=== PATIENT | female | born 1940 | race Caucasian/White ===

== ENCOUNTER 2017-01-26 08:04 | Emergency (ER) | payer MEDICARE, OTHER ==
[2017-01-26 08:49] VITALS: BP 142/74
--- NOTE | 2017-01-26 08:57 | UC ---
Flori, DoctorEra, scribed for Jose L Miller MD on 01/26/17 at 0841 . Abdominal Pain Female HPI - HPI Summary HPI Summary: 76 year old female arrived to [facility] c/o decreased BMs for approximately 1 month. She reports very small black BMs, as well as generalized abdominal pain, nausea, and vomiting for the past 2-3 days. She indicates that her nausea increases after a meal and that she vomits immediately after eating or drinking. Pt denies fever. She was prescribed laxatives in [place] on 12/26/2016 , but indicates that they have not alleviated her symptoms. Her reports that pt has experienced increased nausea since her colonoscopy a few years ago. Additionally, she has a PMHx of uterine cancer (17+ years ago) and a hysterectomy. - History of Current Complaint Chief Complaint: UCAbdominalPain Stated Complaint: ABDOMINAL PAIN Time Seen by Provider: 01/26/17 08:30 Hx Obtained From: Patient Hx Last Menstrual Period: Many years ago. Onset/Duration: Gradual Onset Severity Initially: Moderate Severity Currently: Moderate Location: Epigastric Aggravating Factor(s): Food - increased nauseas Associated Signs and Symptoms: Positive: Constipation, Nausea, Vomiting Allergies/Adverse Reactions: Allergies Allergy/AdvReac Type Severity Reaction Status Date / Time No Known Allergies Allergy Verified 01/26/17 08:12 PMH/Surg Hx/FS Hx/Imm Hx Endocrine History Of: Reports: Diabetes, Dyslipidemia Denies: Thyroid Disease, Hyperthyroidism, Hypothyroidism Cardiovascular History Of: Reports: Hypertension Denies: Cardiac Disorders, Pacemaker/ICD, Myocardial Infarction, Congestive Heart Failure, Atrial Fibrillation, Deep Vein Thrombosis, Bleeding Disorders Respiratory History Of: Denies: COPD, Asthma, Bronchitis, Pneumonia, Pulmonary Embolism GI/ History Of: Reports: Gastroesophageal Reflux Denies: Ulcer, Gastrointestinal Bleed, Gall Bladder Disease, Kidney Stones, Diverticulitis, Renal Disease, Urosepsis Neurological History Of: 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 Negative For: HIV, Hepatitis B, Hepatitis C - Surgical History Surgical History: Yes Surgery Procedure, Year, and Place: HYSTERECTOMY MANY YEARS AGO. NECK -" STRAIGHTENED" - Family History Known Family History: Negative: Cardiac Disease, Hypertension, Diabetes Family History: No FHx of CVA - Social History Lives: With Family Alcohol Use: Occasionally Substance Use Type: None Smoking Status (MU): Former Smoker Type: Cigarettes Amount Used/How Often: 1 pack per week Have You Smoked in the Last Year: No When Did the Patient Quit Smoking/Using Tobacco: 30 years ago - Immunization History Most Recent Influenza Vaccination: unsure if she got it this year Most Recent Tetanus Shot: unsure Review of Systems Constitutional: Other - negative: fever Gastrointestinal: Abdominal Pain, Vomiting, Other - nausea, constipation Psychological: Other - mild dementia All Other Systems Reviewed And Are Negative: Yes Physical Exam Triage Information Reviewed: Yes Completion Of Physical Exam Limited Due To: Other - signs of mild dementia Appearance: Well-Appearing, No Pain Distress Vital Signs: Initial Vital Signs Temp 97.4 F 01/26/17 08:20 Pulse 70 01/26/17 08:20 Resp 20 01/26/17 08:20 BP 142/74 01/26/17 08:20 Pulse Ox 100 01/26/17 08:20 Vital Signs Reviewed: Yes Eyes: Positive: Conjunctiva Clear ENT: Positive: Normal ENT inspection Neck: Positive: Supple, Nontender Respiratory: Positive: Lungs clear, Normal breath sounds, No respiratory distress Cardiovascular: Positive: RRR Abdomen Description: Positive: Nontender, Soft, Other: - vertical scar below umbilicus Bowel Sounds: Positive: Other: - high pitched bowel sounds Musculoskeletal: Positive: Strength Intact, ROM Intact Neurological: Positive: Alert, Muscle Tone Normal Psychological Exam: Normal Skin Exam: Normal Abd Pain Female Course/Dx - Course Course Of Treatment: DUE TO ABDOMINAL PAIN WITH CONSTIPATION AND VOMITING, PATIENT TRANSFERRED TO ED. DISCUSSED WITH DR AGUILERA. PATIENT STABLE IN CLINIC. DISCUSSED NEED FOR CT/LABS WITH PATIENT AND AND THE NEED FOR FURTHER EVALUATION AND CARE IN ED. THEY CHOSE TO GO TO ED BY POV. - Differential Dx/Diagnosis Provider Diagnoses: ABDOMINAL PAIN, VOMITING, BLACK STOOLS - Physician Notification/Consults Discussed Patient Care With: 08:46 - Discussed pt care with Dr. Aguilera at [facility]. She agrees to accept pt. Discharge - Discharge Plan Condition: Stable Disposition: AGAINST MEDICAL ADVICE Referrals: Shanti Davis MD [Primary Care Provider] - The documentation as recorded by the Doctor cartwright Tahera accurately reflects the service I personally performed and the decisions made by me, Jose L Miller MD.
== END 2017-01-26 08:50 | disposition left against medical advice (07) ==
LOC: UCEAST 08:04
DX: R10.9 Unspecified abdominal pain (principal); R11.10 Vomiting, unspecified; E11.9 Type 2 diabetes mellitus without complications; K92.1 Melena; E78.5 Hyperlipidemia, unspecified; I10 Essential (primary) hypertension; K21.9 Gastro-esophageal reflux disease without esophagitis; F03.90 Unspecified dementia, unspecified severity, without behavioral disturbance, psychotic disturbance, mood disturbance, and anxiety; F41.9 Anxiety disorder, unspecified; F32.9 Major depressive disorder, single episode, unspecified; Z87.891 Personal history of nicotine dependence; Z85.42 Personal history of malignant neoplasm of other parts of uterus; Z79.82 Long term (current) use of aspirin
CPT/HCPCS: 99212; G0463

== ENCOUNTER 2017-01-26 09:45 | Emergency (ER) | payer MEDICARE, OTHER ==
--- NOTE | 2017-01-26 10:41 | RAD ---
Indication: Abdominal pain. Single view of the chest including dual energy PA views demonstrates no mediastinal shift. Heart is of normal size and configuration. Atherosclerotic aorta is noted. Lung crespo are clear. When compared to previous exam of August 09, 2016 no significant change is noted. IMPRESSION: Atherosclerotic aorta. No active cardiopulmonary disease is noted.
[2017-01-26 11:16] LABS: Hematocrit 37 % (35-47); Hemoglobin 12.5 g/dl (12.0-16.0); Mean Corpuscular HGB Conc 34 g/dl (31-36); Mean Corpuscular Hemoglobin 31 pg (27-31); Mean Corpuscular Volume 92 fL (80-97); Mean Platelet Volume 8 um3 (7.4-10.4); Red Blood Count 4.03 10^6/ul (4.0-5.4); Red Cell Distribution Width 13 % (10.5-15); White Blood Count 6.8 10^3/ul (3.5-10.8)
[2017-01-26] MEDS ORDERED: Ondansetron INJ* 2 MG/ML VIAL IV ONE (11:28)
[2017-01-26 11:31] LABS: Albumin 4.4 g/dL (3.2-5.2); BUN/Creatinine Ratio 19.8 (8-20); Calcium 9.6 mg/dL (8.6-10.3); EGFR African American 64.5 (>60); EGFR Non-African American 50.1 (>60); Globulin 3.2 g/dL (2-4); Potassium 3.7 mmol/L (3.5-5.0); Total Bilirubin 0.7 mg/dL (0.2-1.0); Total Protein 7.6 g/dL (6.4-8.9)
[2017-01-26] MEDS ORDERED: Iodixanol* (CONTRAST) 320 MG/ML 100 ML SDV IV ONE (12:20)
--- NOTE | 2017-01-26 13:38 | RAD ---
Indication: Abdominal pain, uterine carcinoma. Contrast: Administered 85.0 ml of VISAPAQUE 320 mgi/ml. CT of the abdomen and pelvis was performed after oral and IV contrast administration. Coronal and sagittal reconstructed images were obtained. The lung bases demonstrate no pleural fluid, nodules or masses. Heart demonstrates no pericardial effusion. The liver is normal in size. It is diffusely decreased in density consistent with hepatic steatosis. The gallbladder demonstrates no calcified gallstones. No pericholecystic fluid or wall thickening is identified. The spleen is normal in size. No adrenal lesions are noted. The kidneys demonstrate symmetric nephrograms without focal lesions. Multiple parapelvic cysts are noted in both kidneys. No hydronephrosis is noted. The pancreas demonstrates no mass or pancreatic duct dilatation. The common duct is not dilated. No dilated loops of bowel are noted. Contrast is noted in the right colon without evidence of bowel obstruction. CT of the pelvis demonstrates no pelvic adenopathy. No abnormally dilated loops of bowel are noted. The patient is status post hysterectomy. No free fluid is identified. The appendix is normal in size. IMPRESSION: MULTIPLE PARAPELVIC CYSTS ARE NOTED IN THE RENAL PELVIS. NO EVIDENCE OF BOWEL OBSTRUCTION IS NOTED. DIVERTICULOSIS WITHOUT DEFINITE EVIDENCE OF DIVERTICULITIS.
[2017-01-26 15:09] VITALS: BP 152/98
--- NOTE | 2017-02-09 18:50 | ED ---
Curz Ruby Billy, scribed for Velma Tracy MD on 01/26/17 at 1239 . Abdominal Pain/Female - HPI Summary HPI Summary: Patient is a 76 year-old female coming to [facility] for evaluation of abdominal pain , constipation, and dark stools for the last several weeks. She states that she has been straining and only able to produce a small amount of stool, which appears black in appearance. She was prescribed Flory-lax about 2 weeks ago, which has not improved her constipation. She denies any similar episodes in the past. She takes Nexium and Naproxen. - History of Current Complaint Chief Complaint: EDNauseaVomitDiarrh Stated Complaint: VOMITING/SENT FROM [facility] Time Seen by Provider: 01/26/17 09:52 Hx Obtained From: Patient Hx Last Menstrual Period: Many years ago. Onset/Duration: Gradual Onset, Lasting Weeks, Still Present Timing: Constant Severity Initially: Moderate Severity Currently: Moderate Pain Intensity: 7 Pain Scale Used: 0-10 Numeric Location: Diffuse Radiates: No Character: Dull, Cramping Aggravating Factor(s): Nothing Alleviating Factor(s): Nothing Associated Signs and Symptoms: Positive: Constipation, Blood in Stool - black. Negative: Chest Pain, Vomiting Allergies/Adverse Reactions: Allergies Allergy/AdvReac Type Severity Reaction Status Date / Time No Known Allergies Allergy Verified 01/26/17 09:49 Home Medications: Home Medications Hydrochlorothiazide TAB* [Hydrodiuril TAB*] 25 mg PO .ONCE 01/26/17 [History Confirmed 01/26/17] Naproxen [Naproxen EC 500 MG TAB] 500 mg PO BID PRN 01/26/17 [History Confirmed 01/26/17] Rivastigmine [Rivastigmine Transdermal] 1 applic TOPICAL .Q24 01/26/17 [History Confirmed 01/26/17] PMH/Surg Hx/FS Hx/Imm Hx Endocrine/Hematology History: Reports: Hx Anticoagulant Therapy - Aspirin., Hx Diabetes Denies: Hx Thyroid Disease Cardiovascular History: Reports: Hx Hypercholesterolemia, Hx Hypertension Denies: Hx Congestive Heart Failure, Hx Deep Vein Thrombosis, Hx Myocardial Infarction, Hx Pacemaker/ICD Respiratory History: Denies: Hx Asthma, Hx Chronic Obstructive Pulmonary Disease (COPD), Hx Lung Cancer, Hx Pneumonia, Hx Pulmonary Embolism GI History: Reports: Hx Irritable Bowel Denies: Hx Gall Bladder Disease, Hx Gastrointestinal Bleed, Hx Ulcer, Hx Urosepsis History: Denies: Hx Kidney Stones, Hx Renal Disease Musculoskeletal History: Reports: Hx Back Problems - lower back pain Denies: Hx Scoliosis Sensory History: Reports: Hx Contacts or Glasses Denies: Hx Hearing Aid, Hx Hearing Problem Opthamlomology History: Reports: Hx Contacts or Glasses Neurological History: Reports: Hx Dementia - mild dementia, Hx Headaches - YEARS Denies: Hx Seizures Psychiatric History: Reports: Hx Anxiety, Hx Depression Denies: Hx Panic Disorder, Hx Schizophrenia, Hx Bipolar Disorder, Hx Substance Abuse - Cancer History Cancer Type, Location and Year: UTERINE CANCER 1967 - HYSTERECTOMY Hx Chemotherapy: No Hx Radiation Therapy: No - Surgical History Surgery Procedure, Year, and Place: HYSTERECTOMY MANY YEARS AGO. NECK -" STRAIGHTENED" Hx Anesthesia Reactions: No - Immunization History Date of Tetanus Vaccine: unknown, not sure Date of Influenza Vaccine: Unknown Infectious Disease History: No Infectious Disease History: Denies: Hx Clostridium Difficile, Hx Hepatitis, Hx Human Immunodeficiency Virus (HIV), History Other Infectious Disease, Traveled Outside the [place] in Last 30 Days - Family History Known Family History: Negative: Cardiac Disease, Hypertension, Diabetes Family History: No FHx of CVA - Social History Alcohol Use: Occasionally Substance Use Type: Reports: None Smoking Status (MU): Former Smoker Type: Cigarettes Amount Used/How Often: 1 pack per week Have You Smoked in the Last Year: No Review of Systems Constitutional: Negative Negative: Chest Pain Negative: Shortness Of Breath Positive: Abdominal Pain, Other - black stool. Negative: Vomiting Neurological: Negative Psychological: Normal All Other Systems Reviewed And Are Negative: Yes Physical Exam Triage Information Reviewed: Yes Vital Signs On Initial Exam: Initial Vitals Temp Pulse Resp BP Pulse Ox 97.5 F 60 16 162/70 100 01/26/17 09:49 01/26/17 09:49 01/26/17 09:49 01/26/17 09:49 01/26/17 09:49 Vital Signs Reviewed: Yes Appearance: Positive: No Pain Distress Skin: Positive: Warm, Dry Head/Face: Positive: Normal Head/Face Inspection Eyes: Positive: EOMI, Conjunctiva Clear ENT: Positive: Hearing grossly normal. Negative: Muffled/hoarse voice Respiratory/Lung Sounds: Positive: Clear to Auscultation, Breath Sounds Present Cardiovascular: Positive: RRR, Pulses are Symmetrical in both Upper and Lower Extremities. Negative: Murmur Abdomen Description: Positive: Nontender, Soft. Negative: Pulsatile Mass Bowel Sounds: Positive: Present Musculoskeletal: Positive: Strength/ROM Intact. Negative: Edema Left, Edema Right Neurological: Positive: Sensory/Motor Intact, Alert, Oriented to Person Place, Time. Negative: Facial Droop, Focal Deficit @, Slurred Speech - Cheri Coma Scale Coma Scale Total: 15 Diagnostics - Vital Signs Vital Signs Temp Pulse Resp BP Pulse Ox 01/26/17 09:50 97.3 F 55 16 162/70 100 01/26/17 09:49 97.5 F 60 16 162/70 100 - Laboratory Lab Results: Lab Results 01/26/17 01/26/17 01/26/17 Range/Units 11:04 11:04 11:04 WBC 6.8 (3.5-10.8) 10^3/ul RBC 4.03 (4.0-5.4) 10^6/ul Hgb 12.5 (12.0-16.0) g/dl Hct 37 (35-47) % MCV 92 (80-97) fL MCH 31 (27-31) pg MCHC 34 (31-36) g/dl RDW 13 (10.5-15) % Plt Count 195 (150-450) 10^3/ul MPV 8 (7.4-10.4) um3 Neut % (Auto) 63.5 (38-83) % Lymph % (Auto) 27.5 (25-47) % Barbour % (Auto) 6.6 (1-9) % Eos % (Auto) 1.5 (0-6) % Baso % (Auto) 0.9 (0-2) % Absolute Neuts (auto) 4.3 (1.5-7.7) 10^3/ul Absolute Lymphs (auto) 1.9 (1.0-4.8) 10^3/ul Absolute Monos (auto) 0.5 (0-0.8) 10^3/ul Absolute Eos (auto) 0.1 (0-0.6) 10^3/ul Absolute Basos (auto) 0.1 (0-0.2) 10^3/ul Absolute Nucleated RBC 0 10^3/ul Nucleated RBC % 0 INR (Anticoag Therapy) 0.93 (0.89-1.11) APTT 31.1 (26.0-36.3) seconds Sodium 140 (133-145) mmol/L Potassium 3.7 (3.5-5.0) mmol/L Chloride 107 (101-111) mmol/L Carbon Dioxide 25 (22-32) mmol/L Anion Gap 8 (2-11) mmol/L BUN 21 (6-24) mg/dL Creatinine 1.06 H (0.51-0.95) mg/dL Est GFR ( Amer) 64.5 (>60) Est GFR (Non-Af Amer) 50.1 (>60) BUN/Creatinine Ratio 19.8 (8-20) Glucose 118 H (70-100) mg/dL Calcium 9.6 (8.6-10.3) mg/dL Total Bilirubin 0.70 (0.2-1.0) mg/dL AST 14 (13-39) U/L ALT 9 (7-52) U/L Alkaline Phosphatase 88 (34-104) U/L Total Protein 7.6 (6.4-8.9) g/dL Albumin 4.4 (3.2-5.2) g/dL Globulin 3.2 (2-4) g/dL Albumin/Globulin Ratio 1.4 (1-3) Blood Type Antibody Screen 01/26/17 Range/Units 11:04 WBC (3.5-10.8) 10^3/ul RBC (4.0-5.4) 10^6/ul Hgb (12.0-16.0) g/dl Hct (35-47) % MCV (80-97) fL MCH (27-31) pg MCHC (31-36) g/dl RDW (10.5-15) % Plt Count (150-450) 10^3/ul MPV (7.4-10.4) um3 Neut % (Auto) (38-83) % Lymph % (Auto) (25-47) % Barbour % (Auto) (1-9) % Eos % (Auto) (0-6) % Baso % (Auto) (0-2) % Absolute Neuts (auto) (1.5-7.7) 10^3/ul Absolute Lymphs (auto) (1.0-4.8) 10^3/ul Absolute Monos (auto) (0-0.8) 10^3/ul Absolute Eos (auto) (0-0.6) 10^3/ul Absolute Basos (auto) (0-0.2) 10^3/ul Absolute Nucleated RBC 10^3/ul Nucleated RBC % INR (Anticoag Therapy) (0.89-1.11) APTT (26.0-36.3) seconds Sodium (133-145) mmol/L Potassium (3.5-5.0) mmol/L Chloride (101-111) mmol/L Carbon Dioxide (22-32) mmol/L Anion Gap (2-11) mmol/L BUN (6-24) mg/dL Creatinine (0.51-0.95) mg/dL Est GFR ( Amer) (>60) Est GFR (Non-Af Amer) (>60) BUN/Creatinine Ratio (8-20) Glucose (70-100) mg/dL Calcium (8.6-10.3) mg/dL Total Bilirubin (0.2-1.0) mg/dL AST (13-39) U/L ALT (7-52) U/L Alkaline Phosphatase (34-104) U/L Total Protein (6.4-8.9) g/dL Albumin (3.2-5.2) g/dL Globulin (2-4) g/dL Albumin/Globulin Ratio (1-3) Blood Type A Positive Antibody Screen Negative Result Diagrams: 01/26/17 11:04 01/26/17 11:04 Lab Statement: Any lab studies that have been ordered have been reviewed, and results considered in the medical decision making process. - Radiology CXR Radiology Interpretation Completed By: Radiologist - Atherosclerotic aorta. No active cardiopulmonary disease is noted. - CT abd/pel CT Interpretation Completed By: Radiologist - MULTIPLE PARAPELVIC CYSTS ARE NOTED IN THE RENAL PELVIS. NO EVIDENCE OF BOWEL OBSTRUCTION IS NOTED. DIVERTICULOSIS WITHOUT DEFINITE EVIDENCE OF DIVERTICULITIS. - EKG 1128 Cardiac Rate: Bradycardia - 52 bpm EKG Rhythm: Sinus Bradycardia ST Segment: Normal - no acute ST changes EKG Interpretation: nml AV, prolonged IV w/ RBBB, LAFB, nml QTc, LVH, left-axis -40 EKG Comparison: No Significant Change - Compared to 08/09/16 Re-Evaluation - Re-Evaluation First Eval Re-Evaluation Time: 14:37 Comment: Rectal exam shows external hemorrhoids, non-thrombosed, not bleeding. There is soft, dark brown stool. We will send for occult blood testing. Second Eval Re-Evaluation Time: 15:11 Comment: Imaging and lab results reviewed with the patient. Abdominal Pain Fem Course/Dx - Course Course Of Treatment: 76 year-old female coming to the ED for evaluation of abdominal pain, constipation, and dark stools. Physical exam revealed a nontender abdomen. CXR shows atherosclerotic aorta with no active cardiopulmonary disease. CT abd/pel shows multiple parapelvic cysts are noted in the renal pelvis, no evidence of bowel obstruction is noted, and diverticulosis without definite evidence of diverticulitis. Stool sample was negative for occult blood. She will be discharged home to follow up with her PCP in 3 days. - Diagnoses Provider Diagnoses: Constipation, Abdominal pain Discharge - Discharge Plan Condition: Stable Disposition: HOME Patient Education Materials: Constipation (ED), High Fiber Diet (ED), Acute Abdominal Pain (ED) Referrals: Shanti Davis MD [Primary Care Provider] - 3 Days The documentation as recorded by the Cruz cartwright Billy accurately reflects the service I personally performed and the decisions made by Demarcus wright Barbara J, MD.
== END 2017-01-26 15:16 | disposition home or self-care (01) ==
LOC: ED 09:45
DX: K59.00 Constipation, unspecified (principal); R10.9 Unspecified abdominal pain; Z87.891 Personal history of nicotine dependence
CPT/HCPCS: 36415; 71010; 74177; 80053; 82272; 85025; 85610; 85730; 86850; 86900; 86901; 93005; 96374; 99284; J2405; Q9967

== ENCOUNTER 2018-04-06 12:43 | Emergency (ER) | payer MEDICARE, OTHER ==
[2018-04-06 13:30] LABS: ABS Basophils 0.1 10^3/ul (0-0.2); ABS Eosinophils 0.1 10^3/ul (0-0.6); ABS Lymphocytes 1.8 10^3/ul (1.0-4.8); ABS Monocytes 0.5 10^3/ul (0-0.8); ABS Neutrophils 4.2 10^3/ul (1.5-7.7); ABS Nucleated RBC 0 10^3/ul; Eosinophil % 1.3 % (0-6); Hematocrit 33 % (35-47); Lymphocyte % 27.4 % (25-47); Mean Corpuscular HGB Conc 34 g/dl (31-36); Mean Corpuscular Hemoglobin 31 pg (27-31); Mean Corpuscular Volume 92 fL (80-97); Mean Platelet Volume 8.5 um3 (7.4-10.4); Nucleated Red Blood Cells % 0; Platelet Count 222 10^3/ul (150-450); Red Blood Count 3.57 10^6/ul (4.00-5.40); Red Cell Distribution Width 13 % (10.5-15); White Blood Count 6.6 10^3/ul (3.5-10.8)
[2018-04-06 13:36] LABS: INR 0.99 (0.77-1.02)
[2018-04-06 13:49] LABS: EGFR Non-African American 46.4 (>60)
[2018-04-06 14:13] LABS: Urine Appearance Clear; Urine Blood Negative (Negative); Urine Color Yellow; Urine Ketones Negative (Negative); Urine Protein Negative (Negative); Urine Urobilinogen Negative (Negative)
--- NOTE | 2018-04-06 16:58 | ED ---
Vadim Ruby Natalie, scribed for Oscar De La Cruz MD on 04/06/18 at 1325 . Psychiatric Complaint - HPI Summary HPI Summary: The patient is a 77 y/o F presenting to [facility] from home where she lives alone c/o not being able to remember things. The pt has hx of dementia. She states that she was brought here because she keeps forgetting things. Per EMS, the pt's son and daughter were at her house and reported that she attempted to get out of a moving vehicle, and a note was found. The pt does not remember this happening. She denies SI at this time, and she is not currently in any pain. It was reported that the pt had a cardiac event but further information is unknown. - History Of Current Complaint Time Seen by Provider: 04/06/18 12:48 Hx Obtained From: Patient Hx Last Menstrual Period: Many years ago. Onset/Duration: Lasting Days, Still Present Timing: Constant Severity Initially: Moderate Severity Currently: Moderate Character: Depressed Aggravating Factor(s): Other - talking about Alleviating Factor(s): Nothing Has Suicidal: Reports: Has Prior Attempt(s) - trying to get out of moving vehicle - Allergies/Home Medications Allergies/Adverse Reactions: Allergies Allergy/AdvReac Type Severity Reaction Status Date / Time No Known Allergies Allergy Verified 01/26/17 09:49 PMH/Surg Hx/FS Hx/Imm Hx Endocrine/Hematology History: Reports: Hx Anticoagulant Therapy - Aspirin., Hx Diabetes Denies: Hx Thyroid Disease Cardiovascular History: Reports: Hx Hypercholesterolemia, Hx Hypertension Denies: Hx Congestive Heart Failure, Hx Deep Vein Thrombosis, Hx Myocardial Infarction, Hx Pacemaker/ICD Respiratory History: Denies: Hx Asthma, Hx Chronic Obstructive Pulmonary Disease (COPD), Hx Lung Cancer, Hx Pneumonia, Hx Pulmonary Embolism GI History: Reports: Hx Irritable Bowel Denies: Hx Gall Bladder Disease, Hx Gastrointestinal Bleed, Hx Ulcer, Hx Urosepsis History: Denies: Hx Kidney Stones, Hx Renal Disease Musculoskeletal History: Reports: Hx Back Problems - lower back pain Denies: Hx Scoliosis Sensory History: Reports: Hx Contacts or Glasses Denies: Hx Hearing Aid, Hx Hearing Problem Opthamlomology History: Reports: Hx Contacts or Glasses Neurological History: Reports: Hx Dementia - mild dementia, Hx Headaches - YEARS Denies: Hx Seizures Psychiatric History: Reports: Hx Anxiety, Hx Depression Denies: Hx Panic Disorder, Hx Schizophrenia, Hx Bipolar Disorder, Hx Substance Abuse - Cancer History Cancer Type, Location and Year: 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 NECK -" STRAIGHTENED" Hx Anesthesia Reactions: No - Immunization History Date of Tetanus Vaccine: unknown, not sure Date of Influenza Vaccine: Unknown Infectious Disease History: Denies: Hx Clostridium Difficile, Hx Hepatitis, Hx Human Immunodeficiency Virus (HIV), History Other Infectious Disease - Family History Known Family History: Negative: Cardiac Disease, Hypertension, Diabetes Family History: No FHx of CVA - Social History Alcohol Use: Occasionally Substance Use Type: Reports: None Smoking Status (MU): Former Smoker Type: Cigarettes Amount Used/How Often: 1 pack per week Have You Smoked in the Last Year: No Review of Systems Positive: Other - pain in hip Neurological: Other - forgetting things Positive: Other - NEGATIVE: SI All Other Systems Reviewed And Are Negative: Yes Physical Exam - Summary Physical Exam Summary: Appearance: Well appearing, no pain distress, tears up when talking about Skin: warm, dry, reflects adequate perfusion Head/face: normal Eyes: EOMI, NANNETTE ENT: normal Neck: supple, non-tender Respiratory: CTA, breath sounds present Cardiovascular: regularly irregular heart, pulses irregular Abdomen: non-tender, soft Bowel Sounds: present Musculoskeletal: normal, strength/ROM intact Neuro: normal, sensory motor intact, trace of slurred speech Triage Information Reviewed: Yes Vital Signs On Initial Exam: Initial Vitals Pulse Pulse Ox 76 96 04/06/18 12:53 04/06/18 12:53 Vital Signs Reviewed: Yes Diagnostics - Vital Signs Vital Signs Temp Pulse Resp BP Pulse Ox 04/06/18 14:05 57 20 145/65 97 04/06/18 14:00 40 20 98 04/06/18 13:38 71 162/74 94 04/06/18 13:08 97.3 F 60 16 130/80 98 04/06/18 13:00 81 100 04/06/18 12:53 76 96 - Laboratory Lab Results: Lab Results 04/06/18 04/06/18 04/06/18 Range/Units 13:18 13:18 13:18 WBC 6.6 (3.5-10.8) 10^3/ul RBC 3.57 L (4.00-5.40) 10^6/ul Hgb 11.0 L (12.0-16.0) g/dl Hct 33 L (35-47) % MCV 92 (80-97) fL MCH 31 (27-31) pg MCHC 34 (31-36) g/dl RDW 13 (10.5-15) % Plt Count 222 (150-450) 10^3/ul MPV 8.5 (7.4-10.4) um3 Neut % (Auto) 63.0 (38-83) % Lymph % (Auto) 27.4 (25-47) % [place] % (Auto) 7.4 H (0-7) % Eos % (Auto) 1.3 (0-6) % Baso % (Auto) 0.9 (0-2) % Absolute Neuts (auto) 4.2 (1.5-7.7) 10^3/ul Absolute Lymphs (auto) 1.8 (1.0-4.8) 10^3/ul Absolute Monos (auto) 0.5 (0-0.8) 10^3/ul Absolute Eos (auto) 0.1 (0-0.6) 10^3/ul Absolute Basos (auto) 0.1 (0-0.2) 10^3/ul Absolute Nucleated RBC 0 10^3/ul Nucleated RBC % 0 INR (Anticoag Therapy) 0.99 (0.77-1.02) Sodium 143 (135-145) mmol/L Potassium 3.3 L (3.5-5.0) mmol/L Chloride 112 H (101-111) mmol/L Carbon Dioxide 21 L (22-32) mmol/L Anion Gap 10 (2-11) mmol/L BUN 25 H (6-24) mg/dL Creatinine 1.13 H (0.51-0.95) mg/dL Est GFR ( Amer) 56.2 (>60) Est GFR (Non-Af Amer) 46.4 (>60) BUN/Creatinine Ratio 22.1 H (8-20) Glucose 98 (70-100) mg/dL Calcium 9.5 (8.6-10.3) mg/dL Total Bilirubin 0.50 (0.2-1.0) mg/dL AST 12 L (13-39) U/L ALT 6 L (7-52) U/L Alkaline Phosphatase 76 (34-104) U/L Total Protein 7.0 (6.4-8.9) g/dL Albumin 4.1 (3.2-5.2) g/dL Globulin 2.9 (2-4) g/dL Albumin/Globulin Ratio 1.4 (1-3) TSH 0.59 (0.34-5.60) mcIU/mL Urine Color Urine Appearance Urine pH (5-9) Ur Specific [place] (1.010-1.030) Urine Protein (Negative) Urine Ketones (Negative) Urine Blood (Negative) Urine Nitrate (Negative) Urine Bilirubin (Negative) Urine Urobilinogen (Negative) Ur Leukocyte Esterase (Negative) Urine WBC (Auto) (Absent) Urine RBC (Auto) (Absent) Ur Squamous Epith Cells (Absent) Urine Bacteria (Absent) Urine Glucose (Negative) Salicylates < 2.50 (<30) mg/dL Urine Opiates Screen (None Detect) Acetaminophen < 15 mcg/mL Ur Barbiturates Screen (None Detect) Ur Phencyclidine Scrn (None Detect) Ur Amphetamines Screen (None Detect) U Benzodiazepines Scrn (None Detect) Urine Cocaine Screen (None Detect) U Cannabinoids Screen (None Detect) Serum Alcohol < 10 (<10) mg/dL 04/06/18 04/06/18 Range/Units 13:59 14:00 WBC (3.5-10.8) 10^3/ul RBC (4.00-5.40) 10^6/ul Hgb (12.0-16.0) g/dl Hct (35-47) % MCV (80-97) fL MCH (27-31) pg MCHC (31-36) g/dl RDW (10.5-15) % Plt Count (150-450) 10^3/ul MPV (7.4-10.4) um3 Neut % (Auto) (38-83) % Lymph % (Auto) (25-47) % [place] % (Auto) (0-7) % Eos % (Auto) (0-6) % Baso % (Auto) (0-2) % Absolute Neuts (auto) (1.5-7.7) 10^3/ul Absolute Lymphs (auto) (1.0-4.8) 10^3/ul Absolute Monos (auto) (0-0.8) 10^3/ul Absolute Eos (auto) (0-0.6) 10^3/ul Absolute Basos (auto) (0-0.2) 10^3/ul Absolute Nucleated RBC 10^3/ul Nucleated RBC % INR (Anticoag Therapy) (0.77-1.02) Sodium (135-145) mmol/L Potassium (3.5-5.0) mmol/L Chloride (101-111) mmol/L Carbon Dioxide (22-32) mmol/L Anion Gap (2-11) mmol/L BUN (6-24) mg/dL Creatinine (0.51-0.95) mg/dL Est GFR ( Amer) (>60) Est GFR (Non-Af Amer) (>60) BUN/Creatinine Ratio (8-20) Glucose (70-100) mg/dL Calcium (8.6-10.3) mg/dL Total Bilirubin (0.2-1.0) mg/dL AST (13-39) U/L ALT (7-52) U/L Alkaline Phosphatase (34-104) U/L Total Protein (6.4-8.9) g/dL Albumin (3.2-5.2) g/dL Globulin (2-4) g/dL Albumin/Globulin Ratio (1-3) TSH (0.34-5.60) mcIU/mL Urine Color Yellow Urine Appearance Clear Urine pH 7.0 (5-9) Ur Specific [place] 1.010 (1.010-1.030) Urine Protein Negative (Negative) Urine Ketones Negative (Negative) Urine Blood Negative (Negative) Urine Nitrate Negative (Negative) Urine Bilirubin Negative (Negative) Urine Urobilinogen Negative (Negative) Ur Leukocyte Esterase 2+ A (Negative) Urine WBC (Auto) 1+(6-10/hpf) A (Absent) Urine RBC (Auto) Absent (Absent) Ur Squamous Epith Cells Present A (Absent) Urine Bacteria Absent (Absent) Urine Glucose Negative (Negative) Salicylates (<30) mg/dL Urine Opiates Screen None detected (None Detect) Acetaminophen mcg/mL Ur Barbiturates Screen None detected (None Detect) Ur Phencyclidine Scrn None detected (None Detect) Ur Amphetamines Screen None detected (None Detect) U Benzodiazepines Scrn None detected (None Detect) Urine Cocaine Screen None detected (None Detect) U Cannabinoids Screen None detected (None Detect) Serum Alcohol (<10) mg/dL Result Diagrams: 04/06/18 13:18 04/06/18 13:18 Lab Statement: Any lab studies that have been ordered have been reviewed, and results considered in the medical decision making process. - EKG 13:20 Cardiac Rate: NL - 75 BPM EKG Rhythm: Sinus Rhythm EKG Interpretation: RBBB. PACs in bigeminy pattern. Non-specific ST. Re-Evaluation - Re-Evaluation First Eval Re-Evaluation Time: 16:20 Change: Unchanged - I spoke with the pt's family. The pt will not be admitted to [facility]. Course/Dx - Course Course Of Treatment: Patient was sent in by family from home where she lives alone despite dementia. She is recently made alone as her was discharged from the hospital to the care of his son in [place]. There was some concern for her safety there and so she was sent to the ER for "mental health evaluation." Patient does have dementia and has some episodes of tearfulness but she denies any suicidal or homicidal ideation. Full medical evaluation was entertained and she was cleared for psychiatric evaluation. Crisis evaluators in consultation with psychiatry of cleared her from a mental health standpoint. Adult Protective Services and social work were contacted and were made aware of the patient. Adult Protective Services does have an open case with her recently found her to be safe at home. At this time she was to be made a social admit to the medicine service and the hospitalist was contacted. However , the patient's daughter presented and was able to add to the history. They have been looking for suitable housing for her so she does not have to be alone but have been unable to locate some thus far. They would like to take her home with patient's son-in-law staying with her for the time being. Patient is happy with this disposition was discharged in good condition. They are encouraged to follow-up with the primary care physician and social work in the morning to assist with placement. - Differential Dx/Clinical Impression Provider Diagnosis: Advanced dementia - Physician Notifications Discussed Care Of Patient With: Dr. Andrea Garza, APS - from [facility] Social Work Time Discussed With Above Provider: 15:38 - Kayla agrees that the pt should be admitted. Dr. Mendez is aware of the pt's symptoms with possible admission. APS was notified of pt's situation. Pt will not be admitted afterall. Discharge - Sign-Out/Discharge Documenting (check all that apply): Discharge/Admit/Transfer - Pt will be discharged home. - Discharge Plan Condition: Good Disposition: HOME Patient Education Materials: Dementia (ED) Referrals: Shanti Davis MD [Primary Care Provider] - Additional Instructions: Follow-up with Adult Protective Services, patient's physician and social work in the morning to assist with housing. Return if worse, new symptoms or other concerns. - Billing Disposition and Condition Condition: GOOD Disposition: Home The documentation as recorded by the Vadim cartwright Natalie accurately reflects the service I personally performed and the decisions made by Dorothy wright Kirk, MD.
[2018-04-06 17:01] VITALS: BP 173/64
== END 2018-04-06 16:47 | disposition home or self-care (01) ==
LOC: ED 12:43
DX: F03.90 Unspecified dementia, unspecified severity, without behavioral disturbance, psychotic disturbance, mood disturbance, and anxiety (principal); Z87.891 Personal history of nicotine dependence; Z79.01 Long term (current) use of anticoagulants; I10 Essential (primary) hypertension
CPT/HCPCS: 36415; 80053; 80307; 80320; 80329; 81003; 81015; 84443; 85025; 85610; 87086; 93005; 99285; G0480

== ENCOUNTER 2018-04-10 11:57 | Inpatient (IN) | payer MEDICARE, OTHER ==
[2018-04-10 12:52] LABS: ABS Basophils 0.1 10^3/ul (0-0.2); ABS Eosinophils 0.1 10^3/ul (0-0.6); ABS Lymphocytes 1.3 10^3/ul (1.0-4.8); ABS Monocytes 0.6 10^3/ul (0-0.8); ABS Neutrophils 5.8 10^3/ul (1.5-7.7); ABS Nucleated RBC 0 10^3/ul; Hematocrit 30 % (35-47); Hemoglobin 10.4 g/dl (12.0-16.0); Lymphocyte % 16.8 % (25-47); Mean Corpuscular HGB Conc 35 g/dl (31-36); Mean Corpuscular Hemoglobin 32 pg (27-31); Mean Corpuscular Volume 91 fL (80-97); Mean Platelet Volume 8.7 um3 (7.4-10.4); Nucleated Red Blood Cells % 0; Platelet Count 192 10^3/ul (150-450); Red Blood Count 3.27 10^6/ul (4.00-5.40); Red Cell Distribution Width 13 % (10.5-15); White Blood Count 7.8 10^3/ul (3.5-10.8)
[2018-04-10 13:01] LABS: INR 1.02 (0.77-1.02)
[2018-04-10 13:15] LABS: EGFR Non-African American 48.9 (>60)
--- NOTE | 2018-04-10 13:48 | RAD ---
INDICATION: Altered mental status COMPARISON: CT brain August 09, 2016 TECHNIQUE: Noncontrast axial source images were acquired from the skull base to the vertex. FINDINGS: Ventricles/sulci: There is cortical atrophy with compensatory dilatation of the CSF spaces. Brain parenchyma: There is no focal parenchymal finding, evidence of intracranial mass, or intracranial mass effect. There are stable and chronic microvascular ischemic changes. Intracranial hemorrhage:None. Extra-axial spaces: There are no abnormal extra axial fluid collections or evidence of extra-axial mass. Calvarium: There is no calvarial fracture or other calvarial abnormality. Scalp: There is no evidence of scalp or extracalvarial soft tissue abnormality. Paranasal sinuses/mastoid: The paranasal sinuses and mastoid air cells are clear. Other: None. IMPRESSION: No acute intracranial findings. Atrophy with chronic microvascular ischemia
[2018-04-10] MEDS ORDERED: QUEtiapine TAB* 25 MG PO ONE (15:03)
[2018-04-10] MEDS ORDERED: Acetaminophen TAB* 325 MG PO PRN (15:28)
[2018-04-10] MEDS ORDERED: Albuterol 2.5 MG/3 ML NEB.SOL* (0.083%) INH PRN (15:37)
--- NOTE | 2018-04-10 15:42 | ED ---
Brisa Ruby Edward, scribed for Jose L Miller MD on 04/10/18 at 1210 . Neurological HPI - HPI Summary HPI Summary: 77 y/o female presents to the ED for worsening dementia, called by family. Pt seen several days ago in the ED for similar symptoms. Pt unsure why she came to the ED. Pt also c/o ABD pain in the lower ABD. Level 5 caveat due to dementia - History of Current Complaint Chief Complaint: EDAltMentalStatus Stated Complaint: DEMENTIA Time Seen by Provider: 04/10/18 12:03 Hx Obtained From: Patient Hx From Patient Unobtainable Due To: Dementia Hx Last Menstrual Period: Many years ago. Pain Intensity: 0 Character: Other: - worsening dementia Aggravating: Nothing Alleviating: Nothing Associated Signs and Symptoms: Positive: Nothing - ABD pain - Additional Pertinent History Primary Care Physician: [id number] - Allergy/Home Medications Allergies/Adverse Reactions: Allergies Allergy/AdvReac Type Severity Reaction Status Date / Time No Known Allergies Allergy Verified 01/26/17 09:49 Home Medications: Home Medications Lisinopril TAB* [Prinivil TAB*] 20 mg PO DAILY 04/10/18 [History Confirmed 04/10] Pravastatin Sodium [Pravachol] 80 mg PO DAILY 04/10/18 [History Confirmed ] Sertraline* [Zoloft*] 100 mg PO DAILY 04/10/18 [History Confirmed 04/10/18] PMH/Surg Hx/FS Hx/Imm Hx Previously Healthy: No Endocrine/Hematology History: Reports: Hx Anticoagulant Therapy - Aspirin., Hx Diabetes Denies: Hx Thyroid Disease Cardiovascular History: Reports: Hx Hypercholesterolemia, Hx Hypertension Denies: Hx Congestive Heart Failure, Hx Deep Vein Thrombosis, Hx Myocardial Infarction, Hx Pacemaker/ICD Respiratory History: Denies: Hx Asthma, Hx Chronic Obstructive Pulmonary Disease (COPD), Hx Lung Cancer, Hx Pneumonia, Hx Pulmonary Embolism GI History: Reports: Hx Irritable Bowel Denies: Hx Gall Bladder Disease, Hx Gastrointestinal Bleed, Hx Ulcer, Hx Urosepsis History: Denies: Hx Kidney Stones, Hx Renal Disease Musculoskeletal History: Reports: Hx Back Problems - lower back pain Denies: Hx Scoliosis Sensory History: Reports: Hx Contacts or Glasses Denies: Hx Hearing Aid, Hx Hearing Problem Opthamlomology History: Reports: Hx Contacts or Glasses Neurological History: Reports: Hx Dementia - mild dementia, Hx Headaches - YEARS Denies: Hx Seizures Psychiatric History: Reports: Hx Anxiety, Hx Depression Denies: Hx Eating Disorder, Hx Panic Disorder, Hx Schizophrenia, Hx Bipolar Disorder, Hx of Violent Episodes Against Others, Hx Substance Abuse - Cancer History Cancer Type, Location and Year: UTERINE CANCER 1967 - HYSTERECTOMY Hx Chemotherapy: No Hx Radiation Therapy: No - Surgical History Surgery Procedure, Year, and Place: HYSTERECTOMY MANY YEARS AGO. NECK -" STRAIGHTENED" Hx Anesthesia Reactions: No - Immunization History Date of Tetanus Vaccine: unknown, not sure Date of Influenza Vaccine: Unknown Infectious Disease History: No Infectious Disease History: Denies: Hx Clostridium Difficile, Hx Hepatitis, Hx Human Immunodeficiency Virus (HIV), History Other Infectious Disease, Traveled Outside the [place] in Last 30 Days - Family History Known Family History: Positive: None Negative: Cardiac Disease, Hypertension, Diabetes Family History: No FHx of CVA - Social History Alcohol Use: Occasionally Substance Use Type: Reports: None Smoking Status (MU): Former Smoker Type: Cigarettes Amount Used/How Often: 1 pack per week Have You Smoked in the Last Year: No Review of Systems - ROS Summary Review of Systems Summary: Level 5 caveat due to worsening dementia Positive: Abdominal Pain Neurological: Other - memory loss All Other Systems Reviewed And Are Negative: No Physical Exam Triage Information Reviewed: Yes Vital Signs On Initial Exam: Initial Vitals Temp Pulse Resp BP Pulse Ox 98.8 F 60 16 163/67 99 04/10/18 11:59 04/10/18 11:59 04/10/18 11:59 04/10/18 11:59 04/10/18 11:59 Vital Signs Reviewed: Yes Completion Of Physical Exam Limited Due To: Dementia Appearance: Positive: Well-Appearing, No Pain Distress Skin: Positive: Warm, Skin Color Reflects Adequate Perfusion, Dry Head/Face: Positive: Normal Head/Face Inspection Eyes: Positive: EOMI, NANNETTE ENT: Positive: Normal ENT inspection Neck: Positive: Supple, Nontender Respiratory/Lung Sounds: Positive: Clear to Auscultation, Breath Sounds Present Cardiovascular: Positive: RRR Abdomen Description: Positive: Nontender, Soft Bowel Sounds: Positive: Present Musculoskeletal: Positive: Normal, Strength/ROM Intact Neurological: Positive: Sensory/Motor Intact Psychiatric: Positive: Affect/Mood Appropriate Diagnostics - Vital Signs Vital Signs Temp Pulse Resp BP Pulse Ox 04/10/18 11:59 98.8 F 60 16 163/67 99 - Laboratory Lab Results: Lab Results 04/10/18 04/10/18 04/10/18 Range/Units 12:38 12:38 12:38 WBC 7.8 (3.5-10.8) 10^3/ul RBC 3.27 L (4.00-5.40) 10^6/ul Hgb 10.4 L (12.0-16.0) g/dl Hct 30 L (35-47) % MCV 91 (80-97) fL MCH 32 H (27-31) pg MCHC 35 (31-36) g/dl RDW 13 (10.5-15) % Plt Count 192 (150-450) 10^3/ul MPV 8.7 (7.4-10.4) um3 Neut % (Auto) 74.2 (38-83) % Lymph % (Auto) 16.8 L (25-47) % [place] % (Auto) 7.2 H (0-7) % Eos % (Auto) 1.0 (0-6) % Baso % (Auto) 0.8 (0-2) % Absolute Neuts (auto) 5.8 (1.5-7.7) 10^3/ul Absolute Lymphs (auto) 1.3 (1.0-4.8) 10^3/ul Absolute Monos (auto) 0.6 (0-0.8) 10^3/ul Absolute Eos (auto) 0.1 (0-0.6) 10^3/ul Absolute Basos (auto) 0.1 (0-0.2) 10^3/ul Absolute Nucleated RBC 0 10^3/ul Nucleated RBC % 0 INR (Anticoag Therapy) 1.02 (0.77-1.02) APTT 30.6 (26.0-36.3) seconds Sodium 145 (135-145) mmol/L Potassium 3.8 (3.5-5.0) mmol/L Chloride 111 (101-111) mmol/L Carbon Dioxide 25 (22-32) mmol/L Anion Gap 9 (2-11) mmol/L BUN 21 (6-24) mg/dL Creatinine 1.08 H (0.51-0.95) mg/dL Est GFR ( Amer) 59.2 (>60) Est GFR (Non-Af Amer) 48.9 (>60) BUN/Creatinine Ratio 19.4 (8-20) Glucose 121 H (70-100) mg/dL Lactic Acid (0.5-2.0) mmol/L Calcium 9.2 (8.6-10.3) mg/dL Magnesium 2.0 (1.9-2.7) mg/dL Total Bilirubin 0.50 (0.2-1.0) mg/dL AST 11 L (13-39) U/L ALT 7 (7-52) U/L Alkaline Phosphatase 86 (34-104) U/L Ammonia (16-53) mcmol/L Troponin I 0.01 (<0.04) ng/mL C-Reactive Protein 27.85 H (<8.01) mg/L B-Natriuretic Peptide ( - 100) pg/mL Total Protein 6.8 (6.4-8.9) g/dL Albumin 3.9 (3.2-5.2) g/dL Globulin 2.9 (2-4) g/dL Albumin/Globulin Ratio 1.3 (1-3) Lipase 28 (11.0-82.0) U/L TSH 0.41 (0.34-5.60) mcIU/mL Salicylates < 2.50 (<30) mg/dL Acetaminophen < 15 mcg/mL Serum Alcohol < 10 (<10) mg/dL 04/10/18 04/10/18 Range/Units 12:38 12:39 WBC (3.5-10.8) 10^3/ul RBC (4.00-5.40) 10^6/ul Hgb (12.0-16.0) g/dl Hct (35-47) % MCV (80-97) fL MCH (27-31) pg MCHC (31-36) g/dl RDW (10.5-15) % Plt Count (150-450) 10^3/ul MPV (7.4-10.4) um3 Neut % (Auto) (38-83) % Lymph % (Auto) (25-47) % [place] % (Auto) (0-7) % Eos % (Auto) (0-6) % Baso % (Auto) (0-2) % Absolute Neuts (auto) (1.5-7.7) 10^3/ul Absolute Lymphs (auto) (1.0-4.8) 10^3/ul Absolute Monos (auto) (0-0.8) 10^3/ul Absolute Eos (auto) (0-0.6) 10^3/ul Absolute Basos (auto) (0-0.2) 10^3/ul Absolute Nucleated RBC 10^3/ul Nucleated RBC % INR (Anticoag Therapy) (0.77-1.02) APTT (26.0-36.3) seconds Sodium (135-145) mmol/L Potassium (3.5-5.0) mmol/L Chloride (101-111) mmol/L Carbon Dioxide (22-32) mmol/L Anion Gap (2-11) mmol/L BUN (6-24) mg/dL Creatinine (0.51-0.95) mg/dL Est GFR ( Amer) (>60) Est GFR (Non-Af Amer) (>60) BUN/Creatinine Ratio (8-20) Glucose (70-100) mg/dL Lactic Acid 0.7 (0.5-2.0) mmol/L Calcium (8.6-10.3) mg/dL Magnesium (1.9-2.7) mg/dL Total Bilirubin (0.2-1.0) mg/dL AST (13-39) U/L ALT (7-52) U/L Alkaline Phosphatase (34-104) U/L Ammonia 46 (16-53) mcmol/L Troponin I (<0.04) ng/mL C-Reactive Protein (<8.01) mg/L B-Natriuretic Peptide 145 H ( - 100) pg/mL Total Protein (6.4-8.9) g/dL Albumin (3.2-5.2) g/dL Globulin (2-4) g/dL Albumin/Globulin Ratio (1-3) Lipase (11.0-82.0) U/L TSH (0.34-5.60) mcIU/mL Salicylates (<30) mg/dL Acetaminophen mcg/mL Serum Alcohol (<10) mg/dL Result Diagrams: 04/10/18 12:38 04/10/18 12:38 Lab Statement: Any lab studies that have been ordered have been reviewed, and results considered in the medical decision making process. - CT BRAIN CT CT Interpretation: No Acute Changes - No acute intracranial findings. Atrophy with chronic microvascular ischemia CT Interpretation Completed By: Radiologist - EKG 1 EKG Interpretation: 12:34 - NS @ 59 BPM. RBBB. PAC. Flipped T's in anterior leads. Course/Dx - Course Course Of Treatment: SOCIAL WORK SAW THE PATIENT IN THE ED. ADMIT HOSPITALIST. - Diagnoses Provider Diagnoses: Confusion - Physician Notifications Discussed Care Of Patient With: Keron Mendez Time Discussed With Above Provider: 14:35 Instructed by Provider To: Admit As Inpatient Discharge - Sign-Out/Discharge Documenting (check all that apply): Discharge/Admit/Transfer - Discharge Plan Condition: Stable Disposition: ADMITTED TO [facility] Referrals: Shanti Davis MD [Primary Care Provider] - - Billing Disposition and Condition Condition: STABLE Disposition: Admitted to [facility] The documentation as recorded by the Brisa cartwright Edward accurately reflects the service I personally performed and the decisions made by Paul wright William, MD.
[2018-04-10] MEDS: Heparin VIAL(*) 5000 UNITS/ML VIAL (FIVE THOUSAND) SUBCUT SCH (21:02)
[2018-04-10] MEDS: QUEtiapine TAB* 25 MG PO SCH (21:02)
[2018-04-10] MEDS: Gabapentin CAP(*) 300 MG PO SCH (21:02)
--- NOTE | 2018-04-10 22:16 | HP ---
CC: Dr. Shanti Davis.* HISTORY AND PHYSICAL: DATE OF ADMISSION: 04/10/18 PRIMARY CARE PROVIDER: Dr. Shanti Davis. ATTENDING PHYSICIAN WHILE IN THE HOSPITAL: Abdirizak Mendez MD* (report dictated by Cedrick Shields NP) CHIEF COMPLAINT: 1. Altered mental status. 2. Dementia. HISTORY OF PRESENT ILLNESS: I would like to preface the report by stating that the patient has significant amount of underlying dementia. She is really unable to participate and give answers. She is verbal, but her responses to questions are nonsensical and are out of context to the conversation at hand. According to her, she tries to tell me why she came in today. She states that she was brought in for routine checkup according to notes, unfortunately, family is not here. The patient's family says that they are unable to take care of her at home because her dementia has been advancing. She has been wandering. She has been swatting at people. She is becoming more aggressive. She has been hitting people with assistive devices. The patient's family is trying to get her into [facility] or [facility], but they cannot keep the patient safe that they have been trying. She has been having significant amount of aggressiveness. The family was concerned. They brought her at the hospital for help. We were asked to evaluate for admission. There have been no reports of vomiting, diarrhea, abdominal pain. No reports of fevers or chills. No reports of recent medications, but again the history obtained from the patient, I questioned the validity because of her underlying dementia. PAST MEDICAL HISTORY: 1. The patient has a history of dementia. 2. There is a reported history of diabetes, although I do not see that she is on any current medications for this. 3. CKD, stage 3. 4. GERD. 5. Hypertension. 6. Depression. 7. History of uterine cancer. PAST SURGICAL HISTORY: The patient has had tonsillectomy and hysterectomy. MEDICATIONS: Home meds according to list that we are able to obtain include: 1. Zoloft 100 mg daily. 2. Lisinopril 20 mg daily. 3. Pravachol 80 mg daily. ALLERGIES TO MEDICATIONS: Include no known drug allergies. FAMILY HISTORY: Unable to be obtained. SOCIAL HISTORY: The patient states she has been a smoker, but she is unable to quantify and tell me how long. She denies alcohol use. Surrogate decision maker, she states is her , but she also has 3 children as well, who are involved. REVIEW OF SYSTEMS: Unable to be obtained given the advanced dementia. PHYSICAL EXAMINATION GENERAL: At this time, Ms. Jara is a 77-year-old female patient. She is sitting in the ED stretcher. She does not appear to be in any acute distress. VITAL SIGNS: Blood pressure 163/67, pulse 66, respirations 18, O2 sat 97%, temperature 98.8. HEENT: Head: Atraumatic, normocephalic. Eyes: EOMs are intact. Sclerae anicteric and not pale. Throat: Oral mucosa appears to be moist. No oropharyngeal erythema. NECK: Supple. LUNGS: Clear to auscultation bilaterally. No wheezes, rales, or rhonchi. HEART: Sounds S1, S2. Regular rate and rhythm. No murmurs, rubs, or gallops. ABDOMEN: Soft. It was flat, nontender. Bowel sounds were present. EXTREMITIES: Pulses were 2+ throughout. She is moving all 4 extremities with 5 /5 strength. NEUROLOGIC: She is awake. She knows herself. She is confused to place and time. Speech is clear. Tongue is midline. Prosthetic Lab Technician were equal. She had no gross focal deficits. SKIN: Intact. DIAGNOSTIC STUDIES/LAB DATA: WBC of 7.8, RBC of 3.27, hemoglobin of 10.4, hematocrit of 30, platelet count was 192. The INR was 1.02, PTT of 30.6. Sodium 145, potassium 3.8, chloride of 111, bicarb 25, BUN 21, creatinine of 1.08, glucose 121. Lactate 0.7. Calcium 9.2. Mag 3.0. Total bili 0.5, AST 11 , ALT 7, alk phos 86. Ammonia 46. Troponin 0. CRP of 27. BNP of 145. Albumin 3.9. TSH, lipase normal. Toxicology negative. UA is pending. She did have a brain CT obtained today, which revealed no acute intracranial findings, atrophy, chronic microvascular ischemia. EKG today showed sinus bradycardia, rate of 59 with a right bundle-branch block, inverted T waves in V1 to 3, biphasic in V5 and 6 and inverted in V4, also flattened lead 2, inverted in to the lead 3. Reviewing previous EKGs, the T wave changes are consistent along with the bundle-branch block and bradycardia. Old medical records were reviewed. ASSESSMENT AND PLAN: Ms. Jara is a 77-year-old female patient coming in to the emergency department today with complaints of again dementia, particularly the family are unable to care for safe at home. We were asked to evaluate for admission. She will be admitted under inpatient status for: 1. Dementia. Again, I do not suspect any delirium at this point, but I will check UA to be safe. There are no obvious signs of infection. She does escalate quite quickly down here in the ED. She was holding her cane and becoming aggressive; security was called. We were not sure if she was going to swing the cane. I did talk to her. My plan would be to try to get her upstairs , the 4th floor hopefully with decreased stimuli. I did touch base with our psychiatrist and recommended p.r.n. Seroquel for agitation, which I have given her dose here in the ED. We will give her p.r.n. Seroquel. I would like to try to avoid injectables if at all possible. We will get psych involved if needed. 2. Diabetes. I am checking an A1c. Her random glucose here was 121. We need to clarify this from the family. 3. Chronic kidney disease. Creatinine is stable. We will follow. 4. Gastroesophageal reflux disease. Continue supportive care. 5. Hypertension. Continue meds as prescribed. 6. Depression. Continue with her Zoloft. 7. History of uterine cancer. Follow with PCP. 8. DVT prophylaxis. She is high risk, place her on subcu. 9. Code status. She is now full code as she is unable to comprehend this discussion. 10. Fluids, electrolytes, and nutrition. She can have a regular diet. I will replace potassium. TIME SPENT: On admission was 60 minutes, greater than half the time was spent face- to-face with the patient obtaining my history and physical; other half time was spent going over the plan of care with the patient and implementing plan of care. I did discuss the plan of care with my attending, Dr. Mendez. CEDRICK SHIELDS, APPLICATION DEVELOPMENT TEAM LEAD [id number]/[facility] #: [id number] ANANT
[2018-04-11 05:20] LABS: ABS Basophils 0.1 10^3/ul (0-0.2); ABS Eosinophils 0.1 10^3/ul (0-0.6); ABS Lymphocytes 1.7 10^3/ul (1.0-4.8); ABS Monocytes 0.5 10^3/ul (0-0.8); ABS Neutrophils 3.1 10^3/ul (1.5-7.7); ABS Nucleated RBC 0 10^3/ul; Eosinophil % 2.3 % (0-6); Hematocrit 30 % (35-47); Hemoglobin 10.2 g/dl (12.0-16.0); Lymphocyte % 31.8 % (25-47); Mean Corpuscular HGB Conc 34 g/dl (31-36); Mean Corpuscular Hemoglobin 32 pg (27-31); Mean Corpuscular Volume 92 fL (80-97); Mean Platelet Volume 8.1 um3 (7.4-10.4); Nucleated Red Blood Cells % 0; Platelet Count 191 10^3/ul (150-450); Red Blood Count 3.22 10^6/ul (4.00-5.40); Red Cell Distribution Width 13 % (10.5-15); White Blood Count 5.5 10^3/ul (3.5-10.8)
[2018-04-11 05:25] LABS: INR 0.98 (0.77-1.02)
[2018-04-11 05:38] LABS: EGFR Non-African American 47.9 (>60)
[2018-04-11] MEDS: Heparin VIAL(*) 5000 UNITS/ML VIAL (FIVE THOUSAND) SUBCUT SCH ×3 (05:57→22:07)
[2018-04-11] MEDS: Atorvastatin* 20 MG TAB PO SCH (08:26)
[2018-04-11] MEDS: Aspirin EC TAB* 81 MG TAB.EC PO SCH (08:26)
[2018-04-11] MEDS: Lisinopril TAB* 10 MG PO SCH (08:26)
[2018-04-11] MEDS ORDERED: Sertraline* 100 MG TAB PO SCH (09:00)
--- NOTE | 2018-04-11 11:43 | CONSULT ---
Consult Consult: Attending Physician: Juvencio Davis MD Consulting Physician: Cedrick Shields NP Reason for Consult: Dementia with behavioral disturbance Chief complaint: I dont know why I am here Source of information: Patient, daughter, staff, chart review Identifying Data: Patient is 77 y/o female, moved out to live with her daughter after her was admitted to the hospital. History of presenting illness: Patient with history of Dementia, HTN, D.M, CKD admitted to the medical floor. Patient has been worsening in her behaviors for last couple of weeks after separation from her . Patient reportedly was living with her until he was hospitalized for his medical condition and later instead of returning home patients was taken by patients step son to [place] as per patients daughter. Patient with her worsening Dementia has had difficult time adjusting to that, and out of frustration and impulse verbalized passive suicidal ideation I wish I was not her but no intent plan or attempt reported. No suicidal or homicidal ideation since then reported. Since then patient has been living with her daughter. But reportedly it has been difficult controlling patients behavior at home. Patient gets dysregulated in her emotions quickly when memories of her trigger her and she cannot find him. Patient has been disruptive at home not sleeping and trying to leave the home in search of him. Patient gets easily agitated, verbally aggressive and loud and not able to be redirected and do acknowledge that but is unable to control that in the moment. Patient before being brought to E.D was going through similar moments and got agitated to a point that she picked up a hammer and was trying to break the glass to go out of the house. As per daughter she called 911 as she was concerned of patients safety and was brought to the ED. Patient reportedly was agitated aggressive towards staff with her cane. Patient today has been somewhat better in following redirections from staff and taking her medications. Family has been working to find a more stable living situation for patient. Patient reports anxiety about her situation and husbands health, and her memory loss worsens that. Patient is forgetful and has severe level of Dementia with score of 13/30 on MMSE. Patient reportedly has not been sleeping well at night. Patient appetite has been disruptive but no reported weight loss from patient and family. Patient and family reported no psychosis of delusion or hallucinations. Patient reported occasional use of alcohol a drink of wine once a month. No illicit substance use reported. Past Psychiatric History: Patient with dementia hence no history of psychiatric hospitalization, but outpatient f/u and currently on psychotropic medications including Quetiapine and Zoloft. Patient reported history of witnessing traumatic events during the war in [place] when she was at age 8 and received treatment for PTSD related symptoms, not know if she was hospitalized for that. Patient reported passive suicidal ideation but no intent or plan when her parent . Patient reported no homicidal ideations, no legal charges. Patient reported long standing difficulty with controlling her temper. Patient reported no major depression, no euphoric mood and increased goal directed activity, psychosis of delusion/hallucination/bizarre behavior. Mental Status Examination: Renetta is a 77 y/o female, dressed in casual clothing, fair hygiene, lying on her bed, making fair eye contact. Attitude towards interviewer was superficially cooperative with an oppositional attitude mostly. Patient walks with a cane. Patient did not display any abnormal motor activity other during the interview. Patient was oriented to self but not to place and time and stated that I dont need to remember where I am or what date is today. Speech was normal in rate, rhythm and volume with some loudness when angry over certain questions. Patient mood was not happy and easily irritable and affect was labile with intense crying when talking about her . Patient is forgetful during the interview. Thought process was circumstantial. No delusions elicited and no hallucinations reported. Patient denied any SI/HI. Patient had some insight in her treatment and medications. Patient Judgment was poor given recent evidence of her behaviors. Patient impulse control is poor. Diagnosis: Major Neurocognitive Disorder with Behavioral disturbance. Mood Disorder unspecified History of PTSD Prov: Adjustment Disorder with Mood and Conduct Assessment: Patient is 77 y/o with multiple medical illnesses and worsening of her dementia, currently adjusting after separation from her . Patient is showing symptoms of behavioral and emotional dysregulation and was unable to be managed at home. Patient has been compliant with her medications but continued to be aggressive with moments of agitation and unstable mood. Recommendations: Patient will be started on Depakote DR 125 mg PO BID after informed consent from patient and family. Patients Zoloft was reduced to 50 mg PO QAM with plan to further taper slowly as need and tolerated by patient. Patient to be continued with Quetiapine 50 mg PO QHS and Quetiapine 25 mg PO PRN Q daily for agitation. Patient to be continued with 1:1 for safety as she is at risk for her safety due to behavioral disturbance and elopement. Monitor for any adverse of side effects from medications. For severe agitation use Ativan 0.5 mg IM Q8HRS as needed with close monitoring of vitals. Continue with other medications and management on the floor for other medical conditions as per primary team. Psychiatry will continue to follow up on the patient and improvement. Consult Neurology as needed for treatment of Dementia related memory loss. Juvencio Davis MD Attending Psychiatrist Ext #[phone]
[2018-04-11] MEDS: Divalproex DR TAB(*) 125 MG PO SCH ×2 (12:41→22:05)
[2018-04-11] MEDS: QUEtiapine TAB* 25 MG PO PRN (12:41)
[2018-04-11] MEDS ORDERED: PPD test dose* 5 TU/0.1 ML TEST (*USE PPD ORDER SET*) INTRADERM ONE (16:00)
[2018-04-11 19:44] LABS: Urine Appearance Clear; Urine Blood Negative (Negative); Urine Color Yellow; Urine Ketones Negative (Negative); Urine Protein Negative (Negative); Urine Red Blood Cell Absent (Absent); Urine Specific Gravity 1.011 (1.010-1.030); Urine Urobilinogen Negative (Negative); Urine White Blood Cell 2+(11-20/hpf) (Absent)
--- NOTE | 2018-04-11 19:51 | PN ---
Subjective Date of Service: 04/11/18 Interval History: No complaints, Patient denies chest pain or shortness of breath. Denies abd n/ v/d. Patient has been aggressive to staff today , attempting to hit the staff with her cane. trying to leave the floor. Calmed after receiving seroquel and depakote. responds to questions out of context to the conversation. Family History: Unchanged from Admission Social History: Unchanged from Admission Past Medical History: Unchanged from Admission Objective Active Medications: Acetaminophen (Tylenol Tab*) 650 mg PO Q4H PRN PRN Reason: FEVER/PAIN Albuterol (Ventolin 2.5 Mg/3 Ml Neb.Chelita*) 2.5 mg INH Q2H PRN PRN Reason: SOB/WHEEZING Aspirin (Aspirin Ec Tab*) 81 mg PO DAILY [facility] Last Admin: 04/11/18 08:26 Dose: 81 mg Atorvastatin Calcium (Lipitor*) 20 mg PO DAILY [facility] Last Admin: 04/11/18 08:26 Dose: 20 mg Divalproex Sodium (Depakote Dr Tab(*)) 125 mg PO BID@ [facility] Last Admin: 04/11/18 12:41 Dose: 125 mg Gabapentin (Neurontin Cap(*)) 300 mg PO BEDTIME [facility] Last Admin: 04/10/18 21:02 Dose: 300 mg Heparin Sodium (Porcine) (Heparin Vial(*)) 5,000 units SUBCUT Q8HR [facility] Last Admin: 04/11/18 14:00 Dose: 5,000 units Lisinopril (Prinivil Tab*) 20 mg PO DAILY [facility] Last Admin: 04/11/18 08:26 Dose: 20 mg Pharmacy Profile Note (Ppd Reading Note*) 1 note .SEE ORDER .PPD READING ONE Stop: 04/13/18 16:01 Quetiapine Fumarate (Seroquel Tab*) 25 mg PO DAILY PRN PRN Reason: AGITATION Last Admin: 04/11/18 12:41 Dose: 25 mg Quetiapine Fumarate (Seroquel Tab*) 50 mg PO BEDTIME [facility] Last Admin: 04/10/18 21:02 Dose: 50 mg Sertraline HCl (Zoloft*) 50 mg PO DAILY [facility] Vital Signs - 8 hr 04/11/18 15:26 Temperature 98.2 F Pulse Rate 43 Respiratory 15 Rate Blood Pressure 135/61 (mmHg) O2 Sat by Pulse 97 Oximetry Oxygen Devices in Use Now: None Appearance: appear well and healthy sittingin the chair. Appear upset about her . very confused about time and situation. Eyes: No Scleral Icterus Ears/Nose/Mouth/Throat: Mucous Membranes Moist Neck: NL Appearance and Movements; NL JVP, Trachea Midline Respiratory: Symmetrical Chest Expansion and Respiratory Effort, Clear to Auscultation Cardiovascular: NL Sounds; No Murmurs; No JVD, No Edema Abdominal: NL Sounds; No Tenderness; No Distention Extremities: No Edema, No Clubbing, Cyanosis Skin: No Rash or Ulcers Neurological: - - confused to place and time, events, oriented to person only. Result Diagrams: 04/11/18 05:12 04/11/18 05:12 Additional Lab and Data: Lab Results 04/10/18 04/10/18 04/10/18 Range/Units 12:38 12:38 12:38 WBC 7.8 (3.5-10.8) 10^3/ul RBC 3.27 L (4.00-5.40) 10^6/ul Hgb 10.4 L (12.0-16.0) g/dl Hct 30 L (35-47) % MCV 91 (80-97) fL MCH 32 H (27-31) pg MCHC 35 (31-36) g/dl RDW 13 (10.5-15) % Plt Count 192 (150-450) 10^3/ul MPV 8.7 (7.4-10.4) um3 Neut % (Auto) 74.2 (38-83) % Lymph % (Auto) 16.8 L (25-47) % [place] % (Auto) 7.2 H (0-7) % Eos % (Auto) 1.0 (0-6) % Baso % (Auto) 0.8 (0-2) % Absolute Neuts (auto) 5.8 (1.5-7.7) 10^3/ul Absolute Lymphs (auto) 1.3 (1.0-4.8) 10^3/ul Absolute Monos (auto) 0.6 (0-0.8) 10^3/ul Absolute Eos (auto) 0.1 (0-0.6) 10^3/ul Absolute Basos (auto) 0.1 (0-0.2) 10^3/ul Absolute Nucleated RBC 0 10^3/ul Nucleated RBC % 0 INR (Anticoag Therapy) 1.02 (0.77-1.02) APTT 30.6 (26.0-36.3) seconds Sodium 145 (135-145) mmol/L Potassium 3.8 (3.5-5.0) mmol/L Chloride 111 (101-111) mmol/L Carbon Dioxide 25 (22-32) mmol/L Anion Gap 9 (2-11) mmol/L BUN 21 (6-24) mg/dL Creatinine 1.08 H (0.51-0.95) mg/dL Est GFR ( Amer) 59.2 (>60) Est GFR (Non-Af Amer) 48.9 (>60) BUN/Creatinine Ratio 19.4 (8-20) Glucose 121 H (70-100) mg/dL Lactic Acid (0.5-2.0) mmol/L Calcium 9.2 (8.6-10.3) mg/dL Magnesium 2.0 (1.9-2.7) mg/dL Total Bilirubin 0.50 (0.2-1.0) mg/dL AST 11 L (13-39) U/L ALT 7 (7-52) U/L Alkaline Phosphatase 86 (34-104) U/L Ammonia (16-53) mcmol/L Troponin I 0.01 (<0.04) ng/mL C-Reactive Protein 27.85 H (<8.01) mg/L B-Natriuretic Peptide ( - 100) pg/mL Total Protein 6.8 (6.4-8.9) g/dL Albumin 3.9 (3.2-5.2) g/dL Globulin 2.9 (2-4) g/dL Albumin/Globulin Ratio 1.3 (1-3) Lipase 28 (11.0-82.0) U/L TSH 0.41 (0.34-5.60) mcIU/mL Salicylates < 2.50 (<30) mg/dL Acetaminophen < 15 mcg/mL Serum Alcohol < 10 (<10) mg/dL 04/10/18 04/10/18 Range/Units 12:38 12:39 WBC (3.5-10.8) 10^3/ul RBC (4.00-5.40) 10^6/ul Hgb (12.0-16.0) g/dl Hct (35-47) % MCV (80-97) fL MCH (27-31) pg MCHC (31-36) g/dl RDW (10.5-15) % Plt Count (150-450) 10^3/ul MPV (7.4-10.4) um3 Neut % (Auto) (38-83) % Lymph % (Auto) (25-47) % [place] % (Auto) (0-7) % Eos % (Auto) (0-6) % Baso % (Auto) (0-2) % Absolute Neuts (auto) (1.5-7.7) 10^3/ul Absolute Lymphs (auto) (1.0-4.8) 10^3/ul Absolute Monos (auto) (0-0.8) 10^3/ul Absolute Eos (auto) (0-0.6) 10^3/ul Absolute Basos (auto) (0-0.2) 10^3/ul Absolute Nucleated RBC 10^3/ul Nucleated RBC % INR (Anticoag Therapy) (0.77-1.02) APTT (26.0-36.3) seconds Sodium (135-145) mmol/L Potassium (3.5-5.0) mmol/L Chloride (101-111) mmol/L Carbon Dioxide (22-32) mmol/L Anion Gap (2-11) mmol/L BUN (6-24) mg/dL Creatinine (0.51-0.95) mg/dL Est GFR ( Amer) (>60) Est GFR (Non-Af Amer) (>60) BUN/Creatinine Ratio (8-20) Glucose (70-100) mg/dL Lactic Acid 0.7 (0.5-2.0) mmol/L Calcium (8.6-10.3) mg/dL Magnesium (1.9-2.7) mg/dL Total Bilirubin (0.2-1.0) mg/dL AST (13-39) U/L ALT (7-52) U/L Alkaline Phosphatase (34-104) U/L Ammonia 46 (16-53) mcmol/L Troponin I (<0.04) ng/mL C-Reactive Protein (<8.01) mg/L B-Natriuretic Peptide 145 H ( - 100) pg/mL Total Protein (6.4-8.9) g/dL Albumin (3.2-5.2) g/dL Globulin (2-4) g/dL Albumin/Globulin Ratio (1-3) Lipase (11.0-82.0) U/L TSH (0.34-5.60) mcIU/mL Salicylates (<30) mg/dL Acetaminophen mcg/mL Serum Alcohol (<10) mg/dL Assess/Plan/Problems-Billing Assessment: Ms. Jara is a 77 y.o female that was brought to the emergency room because worsening confusion and family is unable to care for the patient at home. Ms. Jara carries a history of HTN, Possible DM ,CKD, GERD and uterine CA. - Patient Problems (1) Dementia Current Visit: Yes Status: Acute Code(s): F03.90 - UNSPECIFIED DEMENTIA WITHOUT BEHAVIORAL DISTURBANCE SNOMED Code(s): 91135306 Comment: Psych consulted- Medicartions recommentation ordered. Weaning Zoloft Adding Depakote, and Seroquel- Can use ativan 0.5 mg IM for severe aggitation Psych recommended neurology consult as well- consulted Will obtain urine to look for underlying infection- patient remain afebrile, no cough or congestion (2) GERD (gastroesophageal reflux disease) Current Visit: Yes Status: Acute Code(s): K21.9 - GASTRO-ESOPHAGEAL REFLUX DISEASE WITHOUT ESOPHAGITIS SNOMED Code(s): 164494983 Comment: supportive care (3) Hypertension Current Visit: Yes Status: Acute Code(s): I10 - ESSENTIAL (PRIMARY) HYPERTENSION SNOMED Code(s): 28096974 Comment: Stable- Continue lisinopril (4) Depression Current Visit: Yes Status: Acute Code(s): F32.9 - MAJOR DEPRESSIVE DISORDER , SINGLE EPISODE, UNSPECIFIED SNOMED Code(s): 92931818 Comment: Will continue Zoloft for now- Psych is weaning at this time Added depakote and seroquel Status and Disposition: inpatient - will need placement
[2018-04-11] MEDS ORDERED: Haloperidol INJ IV/IM* 5 MG/ML AMP IM ONE (21:11)
[2018-04-11] MEDS: Gabapentin CAP(*) 300 MG PO SCH (22:04)
[2018-04-11] MEDS: QUEtiapine TAB* 25 MG PO SCH (22:10)
--- NOTE | 2018-04-11 23:55 | CONS ---
CC: Shanti Davis MD NEUROLOGY CONSULT REPORT: DATE OF CONSULT: 04/11/18 PRIMARY CARE PHYSICIAN: Shanti Davis MD REQUESTING CLINICIAN: Leslie Dickinson NP. REASON FOR CONSULT: Dementia with worsening behavior. HISTORY OF PRESENT ILLNESS: The patient is a 77-year-old female with history of dementia who has been brought to the hospital because of inability of the family to take care for her due to worsening of her behavior in the last few weeks. The patient has been living with her daughter and son-in-law since her was admitted to the hospital a few weeks ago. In addition to agitation , the patient has been reported to have verbalized passive suicidal ideations. Also, there elias been concerns about the patient's safety at home. There have been some reports of aggressiveness from the patient. She had a Psychiatry consult earlier today with some recommendations about her medications recommended such as starting a low dose of Depakote, decreasing the dose of Zoloft and also continuing Seroquel. PAST MEDICAL HISTORY: 1. As mentioned above, dementia. 2. Chronic renal disease. 3. GERD. 4. Hypertension. 5. Depression. 6. History of uterine cancer. PAST SURGICAL HISTORY: Hysterectomy. HOME MEDICATIONS: Include: 1. Zoloft 100 mg p.o. daily, which was recommended to be reduced to 50 mg daily by Psychiatry. 2. Seroquel 50 mg at bedtime and 25 mg p.o. daily p.r.n. 3. Pravastatin 80 mg p.o. daily. 4. Lisinopril 20 mg p.o. daily. 5. Gabapentin 300 mg p.o. at bedtime. 6. Aspirin 81 mg p.o. daily. ALLERGIES: No known drug allergies. FAMILY HISTORY: There is no history of significant neurological disease in the family. SOCIAL HISTORY: As mentioned, the patient currently lives with her daughter and son-in-law. It sounds like she has had a history of smoking in the past. She has a history of [id number] smoking, but she quit when she was in her 30s. She does not drink alcohol or use drugs. REVIEW OF SYSTEMS: Complete review of systems was performed, but due to the patient's limited interaction and accurate response, the accuracy of the responses are not clear. PHYSICAL EXAM: Blood pressure 135/61, respiratory rate 15, pulse rate 43, temperature 98.2. The patient is awake, she is not oriented to year or month. When asked what the season is, she replied "probably close to summer." She is able to tell me her name and date of . She is not able to tell me where she lives. She follows 2 or 3 step commands. She is in no acute distress. Pupils are symmetric and reactive to light. Extraocular movements are intact. Face is symmetric. Tongue is in midline. Palate elevates upward. V1 to V3 is intact to light touch and pinprick. Muscle tone normal and strength is 5/5 throughout. Sensation is intact to light touch and pinprick in the upper and lower extremities. [id number] is intact bilaterally. No resting or action tremor noted. Gait is narrow based, but slightly slow wwith good arm swings. Heart has regular rate and rhythm. Lungs are clear to auscultation. LABORATORY DATA: WBC 5.5, hemoglobin 10.2, hematocrit 30, platelets 191. Sodium 143, potassium 3.9, BUN 20, creatinine 1.1, glucose 118. U-tox is negative. Urine exam is pending. IMAGING: CT of the brain shows no acute abnormality with atrophy with chronic microvascular ischemia. ASSESSMENT AND PLAN: A 77-year-old female with history of dementia who was brought by her daughter because of increased behavioral problems. I agree with the Psychiatry service recommendations including starting a low-dose Depakote. Recommend to also check a UA for evaluation for presence of UTI, or any other source of subtle infection which can affect the mood and behavior in the setting of dementia. In addition, in the same context, investigation of the cause of her mild anemia and correction of that is recommended. Considering that her dementia is not in early stages, the benefit of anticholinesterase inhibitors would be minimal, at best, and given the presence of mood and behavior changes do not recommend to start thos medications at this time due to potential worsening of depression. For long-term evaluation, probably can consider an outpatient neuropsychological test and referral to dementia clinic at a referral center. [id number]/[facility] #: [id number] [facility] HOSPITALReji
[2018-04-12] MEDS: Heparin VIAL(*) 5000 UNITS/ML VIAL (FIVE THOUSAND) SUBCUT SCH ×3 (06:02→22:21)
[2018-04-12] MEDS: Aspirin EC TAB* 81 MG TAB.EC PO SCH (08:40)
[2018-04-12] MEDS: Atorvastatin* 20 MG TAB PO SCH (08:41)
[2018-04-12] MEDS: Sertraline* 50 MG TAB PO SCH (08:41)
[2018-04-12] MEDS: QUEtiapine TAB* 25 MG PO PRN (08:41)
[2018-04-12] MEDS: Lisinopril TAB* 10 MG PO SCH (08:42)
[2018-04-12] MEDS: Divalproex DR TAB(*) 125 MG PO SCH ×2 (08:45→20:46)
[2018-04-12] MEDS ORDERED: Divalproex DR TAB(*) 125 MG PO SCH (09:00)
--- NOTE | 2018-04-12 09:24 | CONSULT ---
Identification - Patient Identification Reason for Psychiatric Consultation: Incapacitating Symptoms -: Patient is a 77 year old, F admitted on 04/10/18. - MHU Identification Employment Status: Disabled Hx Psychiatric Hospitalization: No History - Objective HPI: Renetta is seen for follow up by the psychiatry consult team. She had another episode of agitation and acting out late last night which necessitated administration of stat haloperidol as she was demanding to leave the hospital. Today she is calm and superficially cooperative, but has an irritable edge. She is disoriented to time, place and situation. I do share with her the diagnosis of dementia and explain the rationale for hospitalization and the need for placement. "But I live with my children. They will take care of me." I provide the patient with her daughter Paula Cortez's phone number and encourage her to maintain contact with her family. The patient is informed of time and place. She is tearful and upset but not violent or agitated. Security is in the room for 1:1 observations. Lab Results: Laboratory Tests 04/10/18 04/10/18 04/10/18 12:38 12:38 12:38 WBC 7.8 RBC 3.27 L Hgb 10.4 L Hct 30 L MCV 91 MCH 32 H MCHC 35 RDW 13 Plt Count 192 MPV 8.7 Neut % (Auto) 74.2 Lymph % (Auto) 16.8 L [place] % (Auto) 7.2 H Eos % (Auto) 1.0 Baso % (Auto) 0.8 Absolute Neuts (auto) 5.8 Absolute Lymphs (auto) 1.3 Absolute Monos (auto) 0.6 Absolute Eos (auto) 0.1 Absolute Basos (auto) 0.1 Absolute Nucleated RBC 0 Nucleated RBC % 0 INR (Anticoag Therapy) 1.02 APTT 30.6 Sodium 145 Potassium 3.8 Chloride 111 Carbon Dioxide 25 Anion Gap 9 BUN 21 Creatinine 1.08 H Est GFR ( Amer) 59.2 Est GFR (Non-Af Amer) 48.9 BUN/Creatinine Ratio 19.4 Glucose 121 H Hemoglobin A1c Lactic Acid Calcium 9.2 Magnesium 2.0 Total Bilirubin 0.50 AST 11 L ALT 7 Alkaline Phosphatase 86 Ammonia Troponin I 0.01 C-Reactive Protein 27.85 H B-Natriuretic Peptide Total Protein 6.8 Albumin 3.9 Globulin 2.9 Albumin/Globulin Ratio 1.3 Lipase 28 TSH 0.41 Urine Color Urine Appearance Urine pH Ur Specific [place] Urine Protein Urine Ketones Urine Blood Urine Nitrate Urine Bilirubin Urine Urobilinogen Ur Leukocyte Esterase Urine WBC (Auto) Urine RBC (Auto) Ur Squamous Epith Cells Urine Bacteria Hyaline Casts Urine Glucose Salicylates < 2.50 Acetaminophen < 15 Serum Alcohol < 10 04/10/18 04/10/18 04/10/18 12:38 12:38 12:39 WBC RBC Hgb Hct MCV MCH MCHC RDW Plt Count MPV Neut % (Auto) Lymph % (Auto) [place] % (Auto) Eos % (Auto) Baso % (Auto) Absolute Neuts (auto) Absolute Lymphs (auto) Absolute Monos (auto) Absolute Eos (auto) Absolute Basos (auto) Absolute Nucleated RBC Nucleated RBC % INR (Anticoag Therapy) APTT Sodium Potassium Chloride Carbon Dioxide Anion Gap BUN Creatinine Est GFR ( Amer) Est GFR (Non-Af Amer) BUN/Creatinine Ratio Glucose Hemoglobin A1c 6.7 H Lactic Acid 0.7 Calcium Magnesium Total Bilirubin AST ALT Alkaline Phosphatase Ammonia 46 Troponin I C-Reactive Protein B-Natriuretic Peptide 145 H Total Protein Albumin Globulin Albumin/Globulin Ratio Lipase TSH Urine Color Urine Appearance Urine pH Ur Specific [place] Urine Protein Urine Ketones Urine Blood Urine Nitrate Urine Bilirubin Urine Urobilinogen Ur Leukocyte Esterase Urine WBC (Auto) Urine RBC (Auto) Ur Squamous Epith Cells Urine Bacteria Hyaline Casts Urine Glucose Salicylates Acetaminophen Serum Alcohol 04/11/18 04/11/18 04/11/18 05:12 05:12 05:12 WBC 5.5 RBC 3.22 L Hgb 10.2 L Hct 30 L MCV 92 MCH 32 H MCHC 34 RDW 13 Plt Count 191 MPV 8.1 Neut % (Auto) 55.9 Lymph % (Auto) 31.8 [place] % (Auto) 8.9 H Eos % (Auto) 2.3 Baso % (Auto) 1.1 Absolute Neuts (auto) 3.1 Absolute Lymphs (auto) 1.7 Absolute Monos (auto) 0.5 Absolute Eos (auto) 0.1 Absolute Basos (auto) 0.1 Absolute Nucleated RBC 0 Nucleated RBC % 0 INR (Anticoag Therapy) 0.98 APTT Sodium 143 Potassium 3.9 Chloride 109 Carbon Dioxide 27 Anion Gap 7 BUN 20 Creatinine 1.10 H Est GFR ( Amer) 58.0 Est GFR (Non-Af Amer) 47.9 BUN/Creatinine Ratio 18.2 Glucose 118 H Hemoglobin A1c Lactic Acid Calcium 8.9 Magnesium Total Bilirubin AST ALT Alkaline Phosphatase Ammonia Troponin I C-Reactive Protein B-Natriuretic Peptide Total Protein Albumin Globulin Albumin/Globulin Ratio Lipase TSH Urine Color Urine Appearance Urine pH Ur Specific [place] Urine Protein Urine Ketones Urine Blood Urine Nitrate Urine Bilirubin Urine Urobilinogen Ur Leukocyte Esterase Urine WBC (Auto) Urine RBC (Auto) Ur Squamous Epith Cells Urine Bacteria Hyaline Casts Urine Glucose Salicylates Acetaminophen Serum Alcohol 04/11/18 19:26 WBC RBC Hgb Hct MCV MCH MCHC RDW Plt Count MPV Neut % (Auto) Lymph % (Auto) [place] % (Auto) Eos % (Auto) Baso % (Auto) Absolute Neuts (auto) Absolute Lymphs (auto) Absolute Monos (auto) Absolute Eos (auto) Absolute Basos (auto) Absolute Nucleated RBC Nucleated RBC % INR (Anticoag Therapy) APTT Sodium Potassium Chloride Carbon Dioxide Anion Gap BUN Creatinine Est GFR ( Amer) Est GFR (Non-Af Amer) BUN/Creatinine Ratio Glucose Hemoglobin A1c Lactic Acid Calcium Magnesium Total Bilirubin AST ALT Alkaline Phosphatase Ammonia Troponin I C-Reactive Protein B-Natriuretic Peptide Total Protein Albumin Globulin Albumin/Globulin Ratio Lipase TSH Urine Color Yellow Urine Appearance Clear Urine pH 5.0 Ur Specific [place] 1.011 Urine Protein Negative Urine Ketones Negative Urine Blood Negative Urine Nitrate Negative Urine Bilirubin Negative Urine Urobilinogen Negative Ur Leukocyte Esterase 2+ A Urine WBC (Auto) 2+(11-20/hpf) A Urine RBC (Auto) Absent Ur Squamous Epith Cells Present A Urine Bacteria Absent Hyaline Casts Present A Urine Glucose Negative Salicylates Acetaminophen Serum Alcohol Exam Appearance: Well Developed/Nourished Hygiene: Normal Grooming: Fairly Well Kept Psychomotor Activities: Normal Exhibits Abnormal Movement: No Attitude and Relatedness: Superficially Cooperative Eye Contact: Fair - Speech Quality: Unpressured Latencies: Long Quantity: Terse Patient's Decription of Mood: "Irritable" Observed Affect: Tense Affect Consistent with: Dysphoria Thought Content: Yes Paranoid Ideation, No Passive Wish, No Suicidal Planning, No Homicidal Ideation Experiencing Hallucinations: No, Sensorium is Clear Type of Hallucinations: Visual: No, Auditory: No, Command: No Level of Consciousness: Alert Orientation: Yes Intact, Yes Orientated to Time, Yes Orientated to Place, Yes Orientated to Person Impulse Control: Poor Insight and Judgement: Impaired Impression - Impression Clinical Impression: 77 y.o. , white female of [place] national origin, with a history of major neurocognitive disorder, brought in by family due to concerns that they can no longer provide independent care for her in the home setting, presents with dysphoric mood and episodic agitation, likely secondary to the dementing process. Inpatient DSM-V Dx: G30.9 Merits Inpatient Hospitalization: No Problem List - MHU Problems Type of Problem: Impulse Control Status of Problem: Active Plan - Treatment Plan Treatment Plan: The patient remains symptomatic. We are tapering her off sertraline, which was lowered from 100 to 50mg daily. In it's place we are starting a trial of Depakote 125mg PO BID. We can check a valproic acid level on Saturday (04/14) morning. She is also on quetiapine 50mg PO qhs and prn haloperidol. Psychiatry will continue to follow. Continued Medication Management: Different Medication Medications: Current Medications Acetaminophen (Tylenol Tab*) 650 mg PO Q4H PRN PRN Reason: FEVER/PAIN Albuterol (Ventolin 2.5 Mg/3 Ml Neb.Chelita*) 2.5 mg INH Q2H PRN PRN Reason: SOB/WHEEZING Aspirin (Aspirin Ec Tab*) 81 mg PO DAILY [facility] Last Admin: 04/12/18 08:40 Dose: 81 mg Atorvastatin Calcium (Lipitor*) 20 mg PO DAILY [facility] Last Admin: 04/12/18 08:41 Dose: 20 mg Divalproex Sodium (Depakote Dr Tab(*)) 125 mg PO BID@,21 [facility] Last Admin: 04/12/18 08:45 Dose: 125 mg Gabapentin (Neurontin Cap(*)) 300 mg PO BEDTIME [facility] Last Admin: 04/11/18 22:04 Dose: 300 mg Heparin Sodium (Porcine) (Heparin Vial(*)) 5,000 units SUBCUT Q8HR [facility] Last Admin: 04/12/18 06:02 Dose: 5,000 units Lisinopril (Prinivil Tab*) 20 mg PO DAILY [facility] Last Admin: 04/12/18 08:42 Dose: 20 mg Pharmacy Profile Note (Ppd Reading Note*) 1 note .SEE ORDER .PPD READING ONE Stop: 04/13/18 16:01 Quetiapine Fumarate (Seroquel Tab*) 25 mg PO DAILY PRN PRN Reason: AGITATION Last Admin: 04/12/18 08:41 Dose: 25 mg Quetiapine Fumarate (Seroquel Tab*) 50 mg PO BEDTIME [facility] Last Admin: 04/11/18 22:10 Dose: Not Given Sertraline HCl (Zoloft*) 50 mg PO DAILY [facility] Last Admin: 04/12/18 08:41 Dose: 50 mg
--- NOTE | 2018-04-12 19:55 | PN ---
Subjective Date of Service: 04/12/18 Interval History: Patient is aggressive outburst last night that required haldol. Patient is calm on examination but appears very upset. States that she has been dx with dementia, very tearful about dx. Denies chest pain or shortness of breath, denies abd pain n/v/d.. Family History: Unchanged from Admission Social History: Unchanged from Admission Past Medical History: Unchanged from Admission Objective Active Medications: Acetaminophen (Tylenol Tab*) 650 mg PO Q4H PRN PRN Reason: FEVER/PAIN Albuterol (Ventolin 2.5 Mg/3 Ml Neb.Chelita*) 2.5 mg INH Q2H PRN PRN Reason: SOB/WHEEZING Aspirin (Aspirin Ec Tab*) 81 mg PO DAILY [facility] Last Admin: 04/12/18 08:40 Dose: 81 mg Atorvastatin Calcium (Lipitor*) 20 mg PO DAILY [facility] Last Admin: 04/12/18 08:41 Dose: 20 mg Divalproex Sodium (Depakote Dr Tab(*)) 125 mg PO BID@, [facility] Last Admin: 04/12/18 08:45 Dose: 125 mg Gabapentin (Neurontin Cap(*)) 300 mg PO BEDTIME [facility] Last Admin: 04/11/18 22:04 Dose: 300 mg Heparin Sodium (Porcine) (Heparin Vial(*)) 5,000 units SUBCUT Q8HR [facility] Last Admin: 04/12/18 18:45 Dose: Not Given Lisinopril (Prinivil Tab*) 20 mg PO DAILY [facility] Last Admin: 04/12/18 08:42 Dose: 20 mg Pharmacy Profile Note (Ppd Reading Note*) 1 note .SEE ORDER .PPD READING ONE Stop: 04/13/18 16:01 Quetiapine Fumarate (Seroquel Tab*) 25 mg PO DAILY PRN PRN Reason: AGITATION Last Admin: 04/12/18 08:41 Dose: 25 mg Quetiapine Fumarate (Seroquel Tab*) 50 mg PO BEDTIME [facility] Last Admin: 04/11/18 22:10 Dose: Not Given Sertraline HCl (Zoloft*) 50 mg PO DAILY [facility] Last Admin: 04/12/18 08:41 Dose: 50 mg Vital Signs - 8 hr 04/12/18 16:09 Temperature 98.6 F Pulse Rate 57 Respiratory 16 Rate Blood Pressure 152/58 (mmHg) O2 Sat by Pulse 100 Oximetry Oxygen Devices in Use Now: None Appearance: elderly female tearful and upset, Ears/Nose/Mouth/Throat: NL Teeth, Lips, Gums, Mucous Membranes Moist Neck: NL Appearance and Movements; NL JVP, Trachea Midline Respiratory: Symmetrical Chest Expansion and Respiratory Effort, Clear to Auscultation Cardiovascular: NL Sounds; No Murmurs; No JVD, No Edema, - - irregular Abdominal: NL Sounds; No Tenderness; No Distention Extremities: No Edema, No Clubbing, Cyanosis Skin: No Rash or Ulcers Neurological: - - confused to place, time , situation, oriented to name Nutrition: Taking PO's Result Diagrams: 04/11/18 05:12 04/11/18 05:12 Additional Lab and Data: Lab Results 04/10/18 04/10/18 04/10/18 Range/Units 12:38 12:38 12:38 WBC 7.8 (3.5-10.8) 10^3/ul RBC 3.27 L (4.00-5.40) 10^6/ul Hgb 10.4 L (12.0-16.0) g/dl Hct 30 L (35-47) % MCV 91 (80-97) fL MCH 32 H (27-31) pg MCHC 35 (31-36) g/dl RDW 13 (10.5-15) % Plt Count 192 (150-450) 10^3/ul MPV 8.7 (7.4-10.4) um3 Neut % (Auto) 74.2 (38-83) % Lymph % (Auto) 16.8 L (25-47) % [place] % (Auto) 7.2 H (0-7) % Eos % (Auto) 1.0 (0-6) % Baso % (Auto) 0.8 (0-2) % Absolute Neuts (auto) 5.8 (1.5-7.7) 10^3/ul Absolute Lymphs (auto) 1.3 (1.0-4.8) 10^3/ul Absolute Monos (auto) 0.6 (0-0.8) 10^3/ul Absolute Eos (auto) 0.1 (0-0.6) 10^3/ul Absolute Basos (auto) 0.1 (0-0.2) 10^3/ul Absolute Nucleated RBC 0 10^3/ul Nucleated RBC % 0 INR (Anticoag Therapy) 1.02 (0.77-1.02) APTT 30.6 (26.0-36.3) seconds Sodium 145 (135-145) mmol/L Potassium 3.8 (3.5-5.0) mmol/L Chloride 111 (101-111) mmol/L Carbon Dioxide 25 (22-32) mmol/L Anion Gap 9 (2-11) mmol/L BUN 21 (6-24) mg/dL Creatinine 1.08 H (0.51-0.95) mg/dL Est GFR ( Amer) 59.2 (>60) Est GFR (Non-Af Amer) 48.9 (>60) BUN/Creatinine Ratio 19.4 (8-20) Glucose 121 H (70-100) mg/dL Lactic Acid (0.5-2.0) mmol/L Calcium 9.2 (8.6-10.3) mg/dL Magnesium 2.0 (1.9-2.7) mg/dL Total Bilirubin 0.50 (0.2-1.0) mg/dL AST 11 L (13-39) U/L ALT 7 (7-52) U/L Alkaline Phosphatase 86 (34-104) U/L Ammonia (16-53) mcmol/L Troponin I 0.01 (<0.04) ng/mL C-Reactive Protein 27.85 H (<8.01) mg/L B-Natriuretic Peptide ( - 100) pg/mL Total Protein 6.8 (6.4-8.9) g/dL Albumin 3.9 (3.2-5.2) g/dL Globulin 2.9 (2-4) g/dL Albumin/Globulin Ratio 1.3 (1-3) Lipase 28 (11.0-82.0) U/L TSH 0.41 (0.34-5.60) mcIU/mL Salicylates < 2.50 (<30) mg/dL Acetaminophen < 15 mcg/mL Serum Alcohol < 10 (<10) mg/dL 04/10/18 04/10/18 Range/Units 12:38 12:39 WBC (3.5-10.8) 10^3/ul RBC (4.00-5.40) 10^6/ul Hgb (12.0-16.0) g/dl Hct (35-47) % MCV (80-97) fL MCH (27-31) pg MCHC (31-36) g/dl RDW (10.5-15) % Plt Count (150-450) 10^3/ul MPV (7.4-10.4) um3 Neut % (Auto) (38-83) % Lymph % (Auto) (25-47) % [place] % (Auto) (0-7) % Eos % (Auto) (0-6) % Baso % (Auto) (0-2) % Absolute Neuts (auto) (1.5-7.7) 10^3/ul Absolute Lymphs (auto) (1.0-4.8) 10^3/ul Absolute Monos (auto) (0-0.8) 10^3/ul Absolute Eos (auto) (0-0.6) 10^3/ul Absolute Basos (auto) (0-0.2) 10^3/ul Absolute Nucleated RBC 10^3/ul Nucleated RBC % INR (Anticoag Therapy) (0.77-1.02) APTT (26.0-36.3) seconds Sodium (135-145) mmol/L Potassium (3.5-5.0) mmol/L Chloride (101-111) mmol/L Carbon Dioxide (22-32) mmol/L Anion Gap (2-11) mmol/L BUN (6-24) mg/dL Creatinine (0.51-0.95) mg/dL Est GFR ( Amer) (>60) Est GFR (Non-Af Amer) (>60) BUN/Creatinine Ratio (8-20) Glucose (70-100) mg/dL Lactic Acid 0.7 (0.5-2.0) mmol/L Calcium (8.6-10.3) mg/dL Magnesium (1.9-2.7) mg/dL Total Bilirubin (0.2-1.0) mg/dL AST (13-39) U/L ALT (7-52) U/L Alkaline Phosphatase (34-104) U/L Ammonia 46 (16-53) mcmol/L Troponin I (<0.04) ng/mL C-Reactive Protein (<8.01) mg/L B-Natriuretic Peptide 145 H ( - 100) pg/mL Total Protein (6.4-8.9) g/dL Albumin (3.2-5.2) g/dL Globulin (2-4) g/dL Albumin/Globulin Ratio (1-3) Lipase (11.0-82.0) U/L TSH (0.34-5.60) mcIU/mL Salicylates (<30) mg/dL Acetaminophen mcg/mL Serum Alcohol (<10) mg/dL Assess/Plan/Problems-Billing Assessment: Ms. Jara is a 77 y.o female that was brought to the emergency room because worsening confusion and family is unable to care for the patient at home. Ms. Jara carries a history of HTN, Possible DM ,CKD, GERD and uterine CA. - Patient Problems (1) Dementia Current Visit: Yes Status: Acute Code(s): F03.90 - UNSPECIFIED DEMENTIA WITHOUT BEHAVIORAL DISTURBANCE SNOMED Code(s): 55785206 Comment: Psych consulted- Medicartions recommentation ordered. Weaning Zoloft Adding Depakote, and Seroquel- Can use ativan 0.5 mg IM for severe aggitation Psych recommended neurology consult as well- consulted Neurology agrred with psych recommendations Will obtain urine to look for underlying infection- patient remain afebrile, no cough or congestion (2) GERD (gastroesophageal reflux disease) Current Visit: Yes Status: Acute Code(s): K21.9 - GASTRO-ESOPHAGEAL REFLUX DISEASE WITHOUT ESOPHAGITIS SNOMED Code(s): 858000570 Comment: supportive care (3) Hypertension Current Visit: Yes Status: Acute Code(s): I10 - ESSENTIAL (PRIMARY) HYPERTENSION SNOMED Code(s): 58057611 Comment: Stable- Continue lisinopril (4) Depression Current Visit: Yes Status: Acute Code(s): F32.9 - MAJOR DEPRESSIVE DISORDER , SINGLE EPISODE, UNSPECIFIED SNOMED Code(s): 54911313 Comment: Will continue Zoloft for now- Psych is weaning at this time Added depakote and seroquel supportive care Status and Disposition: inpatient - will need placement
[2018-04-12] MEDS: QUEtiapine TAB* 25 MG PO SCH (20:46)
[2018-04-12] MEDS: Gabapentin CAP(*) 300 MG PO SCH (20:46)
[2018-04-13] MEDS: Heparin VIAL(*) 5000 UNITS/ML VIAL (FIVE THOUSAND) SUBCUT SCH ×3 (06:17→20:42)
[2018-04-13 06:25] LABS: ABS Basophils 0.1 10^3/ul (0-0.2); ABS Eosinophils 0.1 10^3/ul (0-0.6); ABS Lymphocytes 1.7 10^3/ul (1.0-4.8); ABS Monocytes 0.5 10^3/ul (0-0.8); ABS Neutrophils 2.8 10^3/ul (1.5-7.7); ABS Nucleated RBC 0 10^3/ul; Eosinophil % 2.5 % (0-6); Hematocrit 29 % (35-47); Hemoglobin 9.9 g/dl (12.0-16.0); Lymphocyte % 33.2 % (25-47); Mean Corpuscular HGB Conc 34 g/dl (31-36); Mean Corpuscular Hemoglobin 32 pg (27-31); Mean Corpuscular Volume 92 fL (80-97); Mean Platelet Volume 8.3 um3 (7.4-10.4); Nucleated Red Blood Cells % 0.1; Platelet Count 191 10^3/ul (150-450); Red Blood Count 3.14 10^6/ul (4.00-5.40); Red Cell Distribution Width 13 % (10.5-15); White Blood Count 5.2 10^3/ul (3.5-10.8)
[2018-04-13] MEDS: Aspirin EC TAB* 81 MG TAB.EC PO SCH (08:22)
[2018-04-13] MEDS: Atorvastatin* 20 MG TAB PO SCH (08:23)
[2018-04-13] MEDS: Sertraline* 50 MG TAB PO SCH (08:23)
[2018-04-13] MEDS: Lisinopril TAB* 10 MG PO SCH (08:23)
[2018-04-13] MEDS: Divalproex DR TAB(*) 125 MG PO SCH ×2 (08:27→20:38)
[2018-04-13] MEDS ORDERED: PPD Reading NOTE* (*USE PPD ORDER SET*) ONE (16:00)
--- NOTE | 2018-04-13 17:02 | PN ---
Subjective Date of Service: 04/13/18 Interval History: Tearful again today, continues to be upset about dx of dementia. Denies chest pain or shortness of breath. Denies abd pain n/v/d. Continues to be confused. Family History: Unchanged from Admission Social History: Unchanged from Admission Past Medical History: Unchanged from Admission Objective Active Medications: Acetaminophen (Tylenol Tab*) 650 mg PO Q4H PRN PRN Reason: FEVER/PAIN Albuterol (Ventolin 2.5 Mg/3 Ml Neb.Chelita*) 2.5 mg INH Q2H PRN PRN Reason: SOB/WHEEZING Aspirin (Aspirin Ec Tab*) 81 mg PO DAILY [facility] Last Admin: 04/13/18 08:22 Dose: 81 mg Atorvastatin Calcium (Lipitor*) 20 mg PO DAILY [facility] Last Admin: 04/13/18 08:23 Dose: 20 mg Divalproex Sodium (Depakote Dr Tab(*)) 125 mg PO BID@, [facility] Last Admin: 04/13/18 08:27 Dose: 125 mg Gabapentin (Neurontin Cap(*)) 300 mg PO BEDTIME [facility] Last Admin: 04/12/18 20:46 Dose: 300 mg Heparin Sodium (Porcine) (Heparin Vial(*)) 5,000 units SUBCUT Q8HR [facility] Last Admin: 04/13/18 15:24 Dose: 5,000 units Lisinopril (Prinivil Tab*) 20 mg PO DAILY [facility] Last Admin: 04/13/18 08:23 Dose: 20 mg Quetiapine Fumarate (Seroquel Tab*) 25 mg PO DAILY PRN PRN Reason: AGITATION Last Admin: 04/12/18 08:41 Dose: 25 mg Quetiapine Fumarate (Seroquel Tab*) 50 mg PO BEDTIME [facility] Last Admin: 04/12/18 20:46 Dose: 50 mg Sertraline HCl (Zoloft*) 50 mg PO DAILY [facility] Last Admin: 04/13/18 08:23 Dose: 50 mg Vital Signs - 8 hr 04/13/18 16:04 Pulse Rate 56 Respiratory 18 Rate O2 Sat by Pulse 96 Oximetry Oxygen Devices in Use Now: None Appearance: tearful elderly female, no acute distress, confused Eyes: No Scleral Icterus Ears/Nose/Mouth/Throat: Clear Oropharnyx, Mucous Membranes Moist Neck: NL Appearance and Movements; NL JVP, Trachea Midline Respiratory: Symmetrical Chest Expansion and Respiratory Effort, Clear to Auscultation Cardiovascular: NL Sounds; No Murmurs; No JVD, No Edema Abdominal: NL Sounds; No Tenderness; No Distention Extremities: No Edema, No Clubbing, Cyanosis Skin: No Rash or Ulcers Neurological: Alert and Oriented x 3 Nutrition: Taking PO's Result Diagrams: 04/13/18 06:12 04/11/18 05:12 Additional Lab and Data: Lab Results 04/10/18 04/10/18 04/10/18 Range/Units 12:38 12:38 12:38 WBC 7.8 (3.5-10.8) 10^3/ul RBC 3.27 L (4.00-5.40) 10^6/ul Hgb 10.4 L (12.0-16.0) g/dl Hct 30 L (35-47) % MCV 91 (80-97) fL MCH 32 H (27-31) pg MCHC 35 (31-36) g/dl RDW 13 (10.5-15) % Plt Count 192 (150-450) 10^3/ul MPV 8.7 (7.4-10.4) um3 Neut % (Auto) 74.2 (38-83) % Lymph % (Auto) 16.8 L (25-47) % Wilcox % (Auto) 7.2 H (0-7) % Eos % (Auto) 1.0 (0-6) % Baso % (Auto) 0.8 (0-2) % Absolute Neuts (auto) 5.8 (1.5-7.7) 10^3/ul Absolute Lymphs (auto) 1.3 (1.0-4.8) 10^3/ul Absolute Monos (auto) 0.6 (0-0.8) 10^3/ul Absolute Eos (auto) 0.1 (0-0.6) 10^3/ul Absolute Basos (auto) 0.1 (0-0.2) 10^3/ul Absolute Nucleated RBC 0 10^3/ul Nucleated RBC % 0 INR (Anticoag Therapy) 1.02 (0.77-1.02) APTT 30.6 (26.0-36.3) seconds Sodium 145 (135-145) mmol/L Potassium 3.8 (3.5-5.0) mmol/L Chloride 111 (101-111) mmol/L Carbon Dioxide 25 (22-32) mmol/L Anion Gap 9 (2-11) mmol/L BUN 21 (6-24) mg/dL Creatinine 1.08 H (0.51-0.95) mg/dL Est GFR ( Amer) 59.2 (>60) Est GFR (Non-Af Amer) 48.9 (>60) BUN/Creatinine Ratio 19.4 (8-20) Glucose 121 H (70-100) mg/dL Lactic Acid (0.5-2.0) mmol/L Calcium 9.2 (8.6-10.3) mg/dL Magnesium 2.0 (1.9-2.7) mg/dL Total Bilirubin 0.50 (0.2-1.0) mg/dL AST 11 L (13-39) U/L ALT 7 (7-52) U/L Alkaline Phosphatase 86 (34-104) U/L Ammonia (16-53) mcmol/L Troponin I 0.01 (<0.04) ng/mL C-Reactive Protein 27.85 H (<8.01) mg/L B-Natriuretic Peptide ( - 100) pg/mL Total Protein 6.8 (6.4-8.9) g/dL Albumin 3.9 (3.2-5.2) g/dL Globulin 2.9 (2-4) g/dL Albumin/Globulin Ratio 1.3 (1-3) Lipase 28 (11.0-82.0) U/L TSH 0.41 (0.34-5.60) mcIU/mL Salicylates < 2.50 (<30) mg/dL Acetaminophen < 15 mcg/mL Serum Alcohol < 10 (<10) mg/dL 04/10/18 04/10/18 Range/Units 12:38 12:39 WBC (3.5-10.8) 10^3/ul RBC (4.00-5.40) 10^6/ul Hgb (12.0-16.0) g/dl Hct (35-47) % MCV (80-97) fL MCH (27-31) pg MCHC (31-36) g/dl RDW (10.5-15) % Plt Count (150-450) 10^3/ul MPV (7.4-10.4) um3 Neut % (Auto) (38-83) % Lymph % (Auto) (25-47) % Wilcox % (Auto) (0-7) % Eos % (Auto) (0-6) % Baso % (Auto) (0-2) % Absolute Neuts (auto) (1.5-7.7) 10^3/ul Absolute Lymphs (auto) (1.0-4.8) 10^3/ul Absolute Monos (auto) (0-0.8) 10^3/ul Absolute Eos (auto) (0-0.6) 10^3/ul Absolute Basos (auto) (0-0.2) 10^3/ul Absolute Nucleated RBC 10^3/ul Nucleated RBC % INR (Anticoag Therapy) (0.77-1.02) APTT (26.0-36.3) seconds Sodium (135-145) mmol/L Potassium (3.5-5.0) mmol/L Chloride (101-111) mmol/L Carbon Dioxide (22-32) mmol/L Anion Gap (2-11) mmol/L BUN (6-24) mg/dL Creatinine (0.51-0.95) mg/dL Est GFR ( Amer) (>60) Est GFR (Non-Af Amer) (>60) BUN/Creatinine Ratio (8-20) Glucose (70-100) mg/dL Lactic Acid 0.7 (0.5-2.0) mmol/L Calcium (8.6-10.3) mg/dL Magnesium (1.9-2.7) mg/dL Total Bilirubin (0.2-1.0) mg/dL AST (13-39) U/L ALT (7-52) U/L Alkaline Phosphatase (34-104) U/L Ammonia 46 (16-53) mcmol/L Troponin I (<0.04) ng/mL C-Reactive Protein (<8.01) mg/L B-Natriuretic Peptide 145 H ( - 100) pg/mL Total Protein (6.4-8.9) g/dL Albumin (3.2-5.2) g/dL Globulin (2-4) g/dL Albumin/Globulin Ratio (1-3) Lipase (11.0-82.0) U/L TSH (0.34-5.60) mcIU/mL Salicylates (<30) mg/dL Acetaminophen mcg/mL Serum Alcohol (<10) mg/dL Microbiology and Other Data: Microbiology 04/11/18 19:26 Urine Culture - Final Urine Assess/Plan/Problems-Billing Assessment: Ms. Jara is a 77 y.o female that was brought to the emergency room because worsening confusion and family is unable to care for the patient at home. Ms. Jara carries a history of HTN, Possible DM ,CKD, GERD and uterine CA. - Patient Problems (1) Dementia Current Visit: Yes Status: Acute Code(s): F03.90 - UNSPECIFIED DEMENTIA WITHOUT BEHAVIORAL DISTURBANCE SNOMED Code(s): 12631270 Comment: Psych consulted- Medicartions recommentation ordered. Weaning Zoloft Adding Depakote, and Seroquel- Can use ativan 0.5 mg IM for severe aggitation max 3 doses in 24 hours Psych recommended neurology consult as well- consulted Neurology agrred with psych recommendations Will obtain urine to look for underlying infection- patient remain afebrile, no cough or congestion (2) GERD (gastroesophageal reflux disease) Current Visit: Yes Status: Acute Code(s): K21.9 - GASTRO-ESOPHAGEAL REFLUX DISEASE WITHOUT ESOPHAGITIS SNOMED Code(s): 422079380 Comment: supportive care (3) Hypertension Current Visit: Yes Status: Acute Code(s): I10 - ESSENTIAL (PRIMARY) HYPERTENSION SNOMED Code(s): 96016539 Comment: Stable- Continue lisinopril (4) Depression Current Visit: Yes Status: Acute Code(s): F32.9 - MAJOR DEPRESSIVE DISORDER , SINGLE EPISODE, UNSPECIFIED SNOMED Code(s): 37755239 Comment: Will continue Zoloft for now- Psych is weaning at this time Added depakote and seroquel supportive care Status and Disposition: inpatient - will need placement,
[2018-04-13] MEDS: QUEtiapine TAB* 25 MG PO SCH (20:38)
[2018-04-13] MEDS: Gabapentin CAP(*) 300 MG PO SCH (20:38)
[2018-04-14 06:08] LABS: EGFR Non-African American 43.3 (>60)
[2018-04-14] MEDS: Heparin VIAL(*) 5000 UNITS/ML VIAL (FIVE THOUSAND) SUBCUT SCH ×3 (07:28→21:27)
[2018-04-14] MEDS: Divalproex DR TAB(*) 125 MG PO SCH (10:26)
[2018-04-14] MEDS: Lisinopril TAB* 10 MG PO SCH (10:26)
[2018-04-14] MEDS: Sertraline* 50 MG TAB PO SCH (10:26)
[2018-04-14] MEDS: Aspirin EC TAB* 81 MG TAB.EC PO SCH (10:26)
[2018-04-14] MEDS: Atorvastatin* 20 MG TAB PO SCH (10:26)
--- NOTE | 2018-04-14 12:10 | PN ---
Subjective Date of Service: 04/14/18 Interval History: Patient seen and examined. Tearful at times, appears to be annoyed but no overt agitation noted. Able to state she is "in some hospital for something" but otherwise appears to have poor insight. States "family should mind their own business" but cannot explain what that means to her. Appears guarded and slightly paranoid. 1:1 remains, neighbor/friend at bedside as well for visit. Family History: Unchanged from Admission Social History: Unchanged from Admission Past Medical History: Unchanged from Admission Objective Active Medications: Acetaminophen (Tylenol Tab*) 650 mg PO Q4H PRN PRN Reason: FEVER/PAIN Albuterol (Ventolin 2.5 Mg/3 Ml Neb.Chelita*) 2.5 mg INH Q2H PRN PRN Reason: SOB/WHEEZING Aspirin (Aspirin Ec Tab*) 81 mg PO DAILY [facility] Last Admin: 04/14/18 10:26 Dose: 81 mg Atorvastatin Calcium (Lipitor*) 20 mg PO DAILY [facility] Last Admin: 04/14/18 10:26 Dose: 20 mg Divalproex Sodium (Depakote Dr Tab(*)) 125 mg PO BID@ [facility] Last Admin: 04/14/18 10:26 Dose: 125 mg Gabapentin (Neurontin Cap(*)) 300 mg PO BEDTIME [facility] Last Admin: 04/13/18 20:38 Dose: 300 mg Heparin Sodium (Porcine) (Heparin Vial(*)) 5,000 units SUBCUT Q8HR [facility] Last Admin: 04/14/18 07:28 Dose: Not Given Lisinopril (Prinivil Tab*) 20 mg PO DAILY [facility] Last Admin: 04/14/18 10:26 Dose: 20 mg Quetiapine Fumarate (Seroquel Tab*) 25 mg PO DAILY PRN PRN Reason: AGITATION Last Admin: 04/12/18 08:41 Dose: 25 mg Quetiapine Fumarate (Seroquel Tab*) 50 mg PO BEDTIME [facility] Last Admin: 04/13/18 20:38 Dose: 50 mg Sertraline HCl (Zoloft*) 50 mg PO DAILY [facility] Last Admin: 04/14/18 10:26 Dose: 50 mg Vital Signs - 8 hr 04/14/18 04/14/18 08:00 08:12 Temperature 97.9 F Pulse Rate 51 Respiratory 14 16 Rate Blood Pressure 122/55 (mmHg) O2 Sat by Pulse 96 Oximetry Oxygen Devices in Use Now: None Appearance: Alert, tearful Eyes: No Scleral Icterus, PERRLA Ears/Nose/Mouth/Throat: NL Teeth, Lips, Gums, Mucous Membranes Moist Neck: NL Appearance and Movements; NL JVP, Trachea Midline Respiratory: Symmetrical Chest Expansion and Respiratory Effort, Clear to Auscultation Cardiovascular: RRR, No Edema Abdominal: NL Sounds; No Tenderness; No Distention Extremities: No Edema, No Clubbing, Cyanosis Skin: No Rash or Ulcers Neurological: NL Sensation, - - A&Ox2, unsteady gait as per Aid in room, requires some assistance to bathroom Nutrition: Taking PO's Result Diagrams: 04/13/18 06:12 04/14/18 05:11 Additional Lab and Data: Lab Results 04/10/18 04/10/18 04/10/18 Range/Units 12:38 12:38 12:38 WBC 7.8 (3.5-10.8) 10^3/ul RBC 3.27 L (4.00-5.40) 10^6/ul Hgb 10.4 L (12.0-16.0) g/dl Hct 30 L (35-47) % MCV 91 (80-97) fL MCH 32 H (27-31) pg MCHC 35 (31-36) g/dl RDW 13 (10.5-15) % Plt Count 192 (150-450) 10^3/ul MPV 8.7 (7.4-10.4) um3 Neut % (Auto) 74.2 (38-83) % Lymph % (Auto) 16.8 L (25-47) % Tama % (Auto) 7.2 H (0-7) % Eos % (Auto) 1.0 (0-6) % Baso % (Auto) 0.8 (0-2) % Absolute Neuts (auto) 5.8 (1.5-7.7) 10^3/ul Absolute Lymphs (auto) 1.3 (1.0-4.8) 10^3/ul Absolute Monos (auto) 0.6 (0-0.8) 10^3/ul Absolute Eos (auto) 0.1 (0-0.6) 10^3/ul Absolute Basos (auto) 0.1 (0-0.2) 10^3/ul Absolute Nucleated RBC 0 10^3/ul Nucleated RBC % 0 INR (Anticoag Therapy) 1.02 (0.77-1.02) APTT 30.6 (26.0-36.3) seconds Sodium 145 (135-145) mmol/L Potassium 3.8 (3.5-5.0) mmol/L Chloride 111 (101-111) mmol/L Carbon Dioxide 25 (22-32) mmol/L Anion Gap 9 (2-11) mmol/L BUN 21 (6-24) mg/dL Creatinine 1.08 H (0.51-0.95) mg/dL Est GFR ( Amer) 59.2 (>60) Est GFR (Non-Af Amer) 48.9 (>60) BUN/Creatinine Ratio 19.4 (8-20) Glucose 121 H (70-100) mg/dL Lactic Acid (0.5-2.0) mmol/L Calcium 9.2 (8.6-10.3) mg/dL Magnesium 2.0 (1.9-2.7) mg/dL Total Bilirubin 0.50 (0.2-1.0) mg/dL AST 11 L (13-39) U/L ALT 7 (7-52) U/L Alkaline Phosphatase 86 (34-104) U/L Ammonia (16-53) mcmol/L Troponin I 0.01 (<0.04) ng/mL C-Reactive Protein 27.85 H (<8.01) mg/L B-Natriuretic Peptide ( - 100) pg/mL Total Protein 6.8 (6.4-8.9) g/dL Albumin 3.9 (3.2-5.2) g/dL Globulin 2.9 (2-4) g/dL Albumin/Globulin Ratio 1.3 (1-3) Lipase 28 (11.0-82.0) U/L TSH 0.41 (0.34-5.60) mcIU/mL Salicylates < 2.50 (<30) mg/dL Acetaminophen < 15 mcg/mL Serum Alcohol < 10 (<10) mg/dL 04/10/18 04/10/18 Range/Units 12:38 12:39 WBC (3.5-10.8) 10^3/ul RBC (4.00-5.40) 10^6/ul Hgb (12.0-16.0) g/dl Hct (35-47) % MCV (80-97) fL MCH (27-31) pg MCHC (31-36) g/dl RDW (10.5-15) % Plt Count (150-450) 10^3/ul MPV (7.4-10.4) um3 Neut % (Auto) (38-83) % Lymph % (Auto) (25-47) % Tama % (Auto) (0-7) % Eos % (Auto) (0-6) % Baso % (Auto) (0-2) % Absolute Neuts (auto) (1.5-7.7) 10^3/ul Absolute Lymphs (auto) (1.0-4.8) 10^3/ul Absolute Monos (auto) (0-0.8) 10^3/ul Absolute Eos (auto) (0-0.6) 10^3/ul Absolute Basos (auto) (0-0.2) 10^3/ul Absolute Nucleated RBC 10^3/ul Nucleated RBC % INR (Anticoag Therapy) (0.77-1.02) APTT (26.0-36.3) seconds Sodium (135-145) mmol/L Potassium (3.5-5.0) mmol/L Chloride (101-111) mmol/L Carbon Dioxide (22-32) mmol/L Anion Gap (2-11) mmol/L BUN (6-24) mg/dL Creatinine (0.51-0.95) mg/dL Est GFR ( Amer) (>60) Est GFR (Non-Af Amer) (>60) BUN/Creatinine Ratio (8-20) Glucose (70-100) mg/dL Lactic Acid 0.7 (0.5-2.0) mmol/L Calcium (8.6-10.3) mg/dL Magnesium (1.9-2.7) mg/dL Total Bilirubin (0.2-1.0) mg/dL AST (13-39) U/L ALT (7-52) U/L Alkaline Phosphatase (34-104) U/L Ammonia 46 (16-53) mcmol/L Troponin I (<0.04) ng/mL C-Reactive Protein (<8.01) mg/L B-Natriuretic Peptide 145 H ( - 100) pg/mL Total Protein (6.4-8.9) g/dL Albumin (3.2-5.2) g/dL Globulin (2-4) g/dL Albumin/Globulin Ratio (1-3) Lipase (11.0-82.0) U/L TSH (0.34-5.60) mcIU/mL Salicylates (<30) mg/dL Acetaminophen mcg/mL Serum Alcohol (<10) mg/dL Microbiology and Other Data: Microbiology 04/11/18 19:26 Urine Culture - Final Urine Assess/Plan/Problems-Billing Assessment: Ms. Jara is a 77 y.o female that was brought to the emergency room because worsening confusion and family is unable to care for the patient at home. Ms. Jara carries a history of HTN, Possible DM ,CKD, GERD and uterine CA. - Patient Problems (1) Dementia Code(s): F03.90 - UNSPECIFIED DEMENTIA WITHOUT BEHAVIORAL DISTURBANCE SNOMED Code(s): 63356804 Comment: - Appreciate input from psych and neuro - Continue lower dose of SSRI and wean per psych, with added depakote and seroquel per recs - Does not appear to have infectious source - Supportive care - Continue 1:1 (2) Depression Code(s): F32.9 - MAJOR DEPRESSIVE DISORDER, SINGLE EPISODE, UNSPECIFIED SNOMED Code(s): 88496572 Comment: - Likely exacerbated by increase in dementia symptoms - Continue SSRI at lower dose (3) GERD (gastroesophageal reflux disease) Code(s): K21.9 - GASTRO-ESOPHAGEAL REFLUX DISEASE WITHOUT ESOPHAGITIS SNOMED Code(s): 635009347 Comment: - Stable (4) Hx of cancer of uterus Code(s): Z85.42 - PERSONAL HISTORY OF MALIGNANT NEOPLASM OF OTH PRT UTERUS SNOMED Code(s): 113071086 Comment: - In remission (5) Hypertension Code(s): I10 - ESSENTIAL (PRIMARY) HYPERTENSION SNOMED Code(s): 00415873 Comment: - stable on lisinopril (6) Full code status Code(s): Z78.9 - OTHER SPECIFIED HEALTH STATUS SNOMED Code(s): 365913111 Status and Disposition: Pending bed placement at [facility] for memory care as per CM.
--- NOTE | 2018-04-14 14:45 | PN ---
Subjective - Subjective Date of Service: 04/14/18 Service Type: 68420 Hosp care 15 min low complexity Subjective: Patient was seen for follow up by Psychiatry. Patient's continue to struggle with her memory. Patient do not remember significant information from her life and was unable to recall information from immediate and recent past. Patient did not remember last interaction with the provider despite of multiple attempts to remind of her meeting with parts data writer on Saturday. But patient has shown continued improvement in her mood and behavior. Patient has been sleeping and eating better. Although apprehensive about her placement and do not want to stay in the hospital. Patient has been following instructions from staff. Patient had an episode of agitation over the weekend and required IM Haldol. But since then patient has been doing much better. Patient reported no hallucinations or delusions. Patient Depakote level today was 35.0. Objective - Appearance Dysmorphic Features: No Hygiene: Normal Grooming: Fairly Well Kept - Behavior Psychomotor Activities: Normal Exhibits Abnormal Movement: No - Attitude and Relatedness Attitude and Relatedness: Cooperative - More cooperative than last week, less oppositional Eye Contact: Fair - Speech Latencies: Normal - Mood Patient's Decription of Mood: "I am fine" - Affect Observed Affect: Fair - less irritable - Thought Process Patient's Thought Process: Goal Directed Thought Content: No Passive Wish, No Suicidal Planning, No Homicidal Ideation, No Paranoid Ideation - Sensorium Type of Hallucinations: Visual: No, Auditory: No, Command: No - Level of Consciousness Level of Consciousness: Alert Orientation: Yes Orientated to Person, No Intact, No Orientated to Time, No Orientated to Place - Impulse Control Impulse Control: Impaired - but improving - Insight and Judgement Insight and Judgement: Impaired - Medication Management Medication Management Adherence: Yes Assessment - Assessment Inpatient DSM-V Dx: G30.9 Clinical Impression: 77 y.o. , white female of [place] national origin, with a history of major neurocognitive disorder, brought in by family due to concerns that they can no longer provide independent care for her in the home setting, showing improvement in her dysphoric mood and episodic agitation, likely secondary to the dementing process. Plan - Plan Treatment Plan: Name: ANAI ALLEN Birthdate: 1940 [id number] Patient is showing improvement in her symptoms. We are tapering her off sertraline slowly, Will continue with current 50mg daily. Depakote level was 35.0 which is sub therapeutic, will increase Depakote to 125mg PO QAM and 250 mg QHS. She is also on quetiapine 50mg PO qhs and prn. Psychiatry will follow up for further improvement and taper if patient stays on medical floor but can also follow up with outpatient Psychiatrist for medication management if discharged. Continued Medication Management: Different Medication Medications: Current Medications Acetaminophen (Tylenol Tab*) 650 mg PO Q4H PRN PRN Reason: FEVER/PAIN Albuterol (Ventolin 2.5 Mg/3 Ml Neb.Chelita*) 2.5 mg INH Q2H PRN PRN Reason: SOB/WHEEZING Aspirin (Aspirin Ec Tab*) 81 mg PO DAILY [facility] Last Admin: 04/14/18 10:26 Dose: 81 mg Atorvastatin Calcium (Lipitor*) 20 mg PO DAILY [facility] Last Admin: 04/14/18 10:26 Dose: 20 mg Divalproex Sodium (Depakote Dr Tab(*)) 125 mg PO DAILY [facility] Divalproex Sodium (Depakote Dr Tab(*)) 250 mg PO BEDTIME [facility] Gabapentin (Neurontin Cap(*)) 300 mg PO BEDTIME [facility] Last Admin: 04/13/18 20:38 Dose: 300 mg Heparin Sodium (Porcine) (Heparin Vial(*)) 5,000 units SUBCUT Q8HR [facility] Last Admin: 04/14/18 07:28 Dose: Not Given Lisinopril (Prinivil Tab*) 20 mg PO DAILY [facility] Last Admin: 04/14/18 10:26 Dose: 20 mg Quetiapine Fumarate (Seroquel Tab*) 25 mg PO DAILY PRN PRN Reason: AGITATION Last Admin: 04/12/18 08:41 Dose: 25 mg Quetiapine Fumarate (Seroquel Tab*) 50 mg PO BEDTIME [facility] Last Admin: 04/13/18 20:38 Dose: 50 mg Sertraline HCl (Zoloft*) 50 mg PO DAILY [facility] Last Admin: 04/14/18 10:26 Dose: 50 mg
[2018-04-14] MEDS: QUEtiapine TAB* 25 MG PO PRN (18:30)
[2018-04-14] MEDS ORDERED: Divalproex DR TAB(*) 250 MG PO SCH (21:00)
[2018-04-14] MEDS: Gabapentin CAP(*) 300 MG PO SCH (21:14)
[2018-04-14] MEDS: QUEtiapine TAB* 25 MG PO SCH (21:14)
[2018-04-15] MEDS: Heparin VIAL(*) 5000 UNITS/ML VIAL (FIVE THOUSAND) SUBCUT SCH ×3 (06:05→21:27)
[2018-04-15] MEDS ORDERED: Divalproex DR TAB(*) 125 MG PO SCH (09:00)
[2018-04-15] MEDS: Lisinopril TAB* 10 MG PO SCH (10:47)
[2018-04-15] MEDS: Aspirin EC TAB* 81 MG TAB.EC PO SCH (10:47)
[2018-04-15] MEDS: Atorvastatin* 20 MG TAB PO SCH (10:47)
[2018-04-15] MEDS: Sertraline* 50 MG TAB PO SCH (10:49)
[2018-04-15] MEDS: QUEtiapine TAB* 25 MG PO PRN (13:12)
[2018-04-15] MEDS: Haloperidol INJ IV/IM* 5 MG/ML AMP IM PRN ×2 (13:45→14:01)
--- NOTE | 2018-04-15 14:30 | PN ---
Subjective Date of Service: 04/15/18 Interval History: Patient seen and examined, remains labile and tearful during this morning's exam , however, patient escalated this afternoon, requiring security to come to bedside. Patient is trying to leave the hospital and becoming extremely agitated. Per RN, patient is starting to calm down and sitting and talking with aid. Family History: Unchanged from Admission Social History: Unchanged from Admission Past Medical History: Unchanged from Admission Objective Active Medications: Acetaminophen (Tylenol Tab*) 650 mg PO Q4H PRN PRN Reason: FEVER/PAIN Albuterol (Ventolin 2.5 Mg/3 Ml Neb.Chelita*) 2.5 mg INH Q2H PRN PRN Reason: SOB/WHEEZING Aspirin (Aspirin Ec Tab*) 81 mg PO DAILY [facility] Last Admin: 04/15/18 10:47 Dose: 81 mg Atorvastatin Calcium (Lipitor*) 20 mg PO DAILY [facility] Last Admin: 04/15/18 10:47 Dose: 20 mg Divalproex Sodium (Depakote Dr Tab(*)) 125 mg PO DAILY [facility] Last Admin: 04/15/18 10:47 Dose: 125 mg Divalproex Sodium (Depakote Dr Tab(*)) 250 mg PO BEDTIME [facility] Last Admin: 04/14/18 21:14 Dose: 250 mg Gabapentin (Neurontin Cap(*)) 300 mg PO BEDTIME [facility] Last Admin: 04/14/18 21:14 Dose: 300 mg Haloperidol Lactate (Haldol Inj Iv/Im*) 5 mg IM Q6H PRN PRN Reason: AGITATION Last Admin: 04/15/18 14:01 Dose: 5 mg Heparin Sodium (Porcine) (Heparin Vial(*)) 5,000 units SUBCUT Q8HR [facility] Last Admin: 04/15/18 06:05 Dose: Not Given Lisinopril (Prinivil Tab*) 20 mg PO DAILY [facility] Last Admin: 04/15/18 10:47 Dose: 20 mg Quetiapine Fumarate (Seroquel Tab*) 25 mg PO DAILY PRN PRN Reason: AGITATION Last Admin: 04/15/18 13:12 Dose: 25 mg Quetiapine Fumarate (Seroquel Tab*) 50 mg PO BEDTIME [facility] Last Admin: 04/14/18 21:14 Dose: 50 mg Sertraline HCl (Zoloft*) 50 mg PO DAILY [facility] Last Admin: 04/15/18 10:49 Dose: 50 mg Vital Signs - 8 hr 04/15/18 04/15/18 07:49 11:22 Temperature 98.0 F 98.1 F Pulse Rate 51 33 Respiratory 16 14 Rate Blood Pressure 130/45 145/44 (mmHg) O2 Sat by Pulse 100 95 Oximetry Oxygen Devices in Use Now: None Appearance: Alert, tearful Eyes: PERRLA Ears/Nose/Mouth/Throat: NL Teeth, Lips, Gums, Mucous Membranes Moist Neck: NL Appearance and Movements; NL JVP, Trachea Midline Respiratory: Symmetrical Chest Expansion and Respiratory Effort, Clear to Auscultation Cardiovascular: NL Sounds; No Murmurs; No JVD, RRR, No Edema Extremities: No Edema, No Clubbing, Cyanosis Neurological: - - confused, combative at times and difficult to redirect Nutrition: Taking PO's Result Diagrams: 04/13/18 06:12 04/14/18 05:11 Additional Lab and Data: Lab Results 04/10/18 04/10/18 04/10/18 Range/Units 12:38 12:38 12:38 WBC 7.8 (3.5-10.8) 10^3/ul RBC 3.27 L (4.00-5.40) 10^6/ul Hgb 10.4 L (12.0-16.0) g/dl Hct 30 L (35-47) % MCV 91 (80-97) fL MCH 32 H (27-31) pg MCHC 35 (31-36) g/dl RDW 13 (10.5-15) % Plt Count 192 (150-450) 10^3/ul MPV 8.7 (7.4-10.4) um3 Neut % (Auto) 74.2 (38-83) % Lymph % (Auto) 16.8 L (25-47) % [place] % (Auto) 7.2 H (0-7) % Eos % (Auto) 1.0 (0-6) % Baso % (Auto) 0.8 (0-2) % Absolute Neuts (auto) 5.8 (1.5-7.7) 10^3/ul Absolute Lymphs (auto) 1.3 (1.0-4.8) 10^3/ul Absolute Monos (auto) 0.6 (0-0.8) 10^3/ul Absolute Eos (auto) 0.1 (0-0.6) 10^3/ul Absolute Basos (auto) 0.1 (0-0.2) 10^3/ul Absolute Nucleated RBC 0 10^3/ul Nucleated RBC % 0 INR (Anticoag Therapy) 1.02 (0.77-1.02) APTT 30.6 (26.0-36.3) seconds Sodium 145 (135-145) mmol/L Potassium 3.8 (3.5-5.0) mmol/L Chloride 111 (101-111) mmol/L Carbon Dioxide 25 (22-32) mmol/L Anion Gap 9 (2-11) mmol/L BUN 21 (6-24) mg/dL Creatinine 1.08 H (0.51-0.95) mg/dL Est GFR ( Amer) 59.2 (>60) Est GFR (Non-Af Amer) 48.9 (>60) BUN/Creatinine Ratio 19.4 (8-20) Glucose 121 H (70-100) mg/dL Lactic Acid (0.5-2.0) mmol/L Calcium 9.2 (8.6-10.3) mg/dL Magnesium 2.0 (1.9-2.7) mg/dL Total Bilirubin 0.50 (0.2-1.0) mg/dL AST 11 L (13-39) U/L ALT 7 (7-52) U/L Alkaline Phosphatase 86 (34-104) U/L Ammonia (16-53) mcmol/L Troponin I 0.01 (<0.04) ng/mL C-Reactive Protein 27.85 H (<8.01) mg/L B-Natriuretic Peptide ( - 100) pg/mL Total Protein 6.8 (6.4-8.9) g/dL Albumin 3.9 (3.2-5.2) g/dL Globulin 2.9 (2-4) g/dL Albumin/Globulin Ratio 1.3 (1-3) Lipase 28 (11.0-82.0) U/L TSH 0.41 (0.34-5.60) mcIU/mL Salicylates < 2.50 (<30) mg/dL Acetaminophen < 15 mcg/mL Serum Alcohol < 10 (<10) mg/dL 04/10/18 04/10/18 Range/Units 12:38 12:39 WBC (3.5-10.8) 10^3/ul RBC (4.00-5.40) 10^6/ul Hgb (12.0-16.0) g/dl Hct (35-47) % MCV (80-97) fL MCH (27-31) pg MCHC (31-36) g/dl RDW (10.5-15) % Plt Count (150-450) 10^3/ul MPV (7.4-10.4) um3 Neut % (Auto) (38-83) % Lymph % (Auto) (25-47) % [place] % (Auto) (0-7) % Eos % (Auto) (0-6) % Baso % (Auto) (0-2) % Absolute Neuts (auto) (1.5-7.7) 10^3/ul Absolute Lymphs (auto) (1.0-4.8) 10^3/ul Absolute Monos (auto) (0-0.8) 10^3/ul Absolute Eos (auto) (0-0.6) 10^3/ul Absolute Basos (auto) (0-0.2) 10^3/ul Absolute Nucleated RBC 10^3/ul Nucleated RBC % INR (Anticoag Therapy) (0.77-1.02) APTT (26.0-36.3) seconds Sodium (135-145) mmol/L Potassium (3.5-5.0) mmol/L Chloride (101-111) mmol/L Carbon Dioxide (22-32) mmol/L Anion Gap (2-11) mmol/L BUN (6-24) mg/dL Creatinine (0.51-0.95) mg/dL Est GFR ( Amer) (>60) Est GFR (Non-Af Amer) (>60) BUN/Creatinine Ratio (8-20) Glucose (70-100) mg/dL Lactic Acid 0.7 (0.5-2.0) mmol/L Calcium (8.6-10.3) mg/dL Magnesium (1.9-2.7) mg/dL Total Bilirubin (0.2-1.0) mg/dL AST (13-39) U/L ALT (7-52) U/L Alkaline Phosphatase (34-104) U/L Ammonia 46 (16-53) mcmol/L Troponin I (<0.04) ng/mL C-Reactive Protein (<8.01) mg/L B-Natriuretic Peptide 145 H ( - 100) pg/mL Total Protein (6.4-8.9) g/dL Albumin (3.2-5.2) g/dL Globulin (2-4) g/dL Albumin/Globulin Ratio (1-3) Lipase (11.0-82.0) U/L TSH (0.34-5.60) mcIU/mL Salicylates (<30) mg/dL Acetaminophen mcg/mL Serum Alcohol (<10) mg/dL Microbiology and Other Data: Microbiology 04/11/18 19:26 Urine Culture - Final Urine Assess/Plan/Problems-Billing Assessment: Ms. Jara is a 77 y.o female that was brought to the emergency room because worsening confusion and family is unable to care for the patient at home. Ms. Jara carries a history of HTN, Possible DM ,CKD, GERD and uterine CA. - Patient Problems (1) Dementia Code(s): F03.90 - UNSPECIFIED DEMENTIA WITHOUT BEHAVIORAL DISTURBANCE SNOMED Code(s): 38793386 Comment: - Reconsulted psych today to assist with symptom management given aggressive behavior last 24 hours - Continue lower dose of SSRI and wean per psych, with added depakote and seroquel per recs - Supportive care - Continue 1:1 (2) Depression Code(s): F32.9 - MAJOR DEPRESSIVE DISORDER, SINGLE EPISODE, UNSPECIFIED SNOMED Code(s): 93608377 Comment: - Likely exacerbated by increase in dementia symptoms - Continue SSRI at lower dose (3) GERD (gastroesophageal reflux disease) Code(s): K21.9 - GASTRO-ESOPHAGEAL REFLUX DISEASE WITHOUT ESOPHAGITIS SNOMED Code(s): 155891427 Comment: - Stable (4) Hx of cancer of uterus Code(s): Z85.42 - PERSONAL HISTORY OF MALIGNANT NEOPLASM OF OTH PRT UTERUS SNOMED Code(s): 913889636 Comment: - In remission (5) Hypertension Code(s): I10 - ESSENTIAL (PRIMARY) HYPERTENSION SNOMED Code(s): 94910241 Comment: - stable on lisinopril (6) Full code status Code(s): Z78.9 - OTHER SPECIFIED HEALTH STATUS SNOMED Code(s): 656763868 Status and Disposition: Pending bed placement at [place] for memory care as per CM.
[2018-04-15] MEDS ORDERED: Ziprasidone IM INJ* 20 MG/ML VIAL IM ONE (15:08)
--- NOTE | 2018-04-15 16:39 | PN ---
Subjective - Subjective Date of Service: 04/15/18 Service Type: 81374 Hosp care 15 min low complexity Subjective: Patient was seen for follow up by Psychiatry. Patient's continue to struggle with her memory was not bale to remember content writer and our meeting yesterday. Patient did remember that she had seen a doctor in the past with content writer's last name. Patient was agitated earlier after she was told that she was not being discharged today and had to be given Geodon 20 mg IM. Patient tolerated it well , was much calmer and in control. Patient was less preoccupied with discharged when content writer met the patient. Patient do not remember significant information from her life and was unable to recall information from immediate and recent past. Patient has shown continued improvement in her mood and behavior other than bouts of agitation when she wants to leave the hospital and is told about her delay in discharge due to finding appropriate placement. Patient has been sleeping and eating fine. Patient reported no hallucinations or delusions. Objective - Appearance Appearance: Healthy Appearing Dysmorphic Features: No Hygiene: Normal Grooming: Well Kept - Behavior Psychomotor Activities: Normal Exhibits Abnormal Movement: No - Attitude and Relatedness Attitude and Relatedness: Cooperative - but difficult to engage in a conversation due to significant memory loss Eye Contact: Fair - Speech Quality: Unpressured Latencies: Normal Quantity: Appropriate - Mood Patient's Decription of Mood: "Fine" - Affect Observed Affect: Fair - as per staff she was labile before IM Geodon - Thought Process Patient's Thought Process: Goal Directed Thought Content: No Passive Wish, No Suicidal Planning, No Homicidal Ideation, No Paranoid Ideation - Sensorium Type of Hallucinations: Visual: No, Auditory: No, Command: No - Level of Consciousness Level of Consciousness: Alert Orientation: Yes Intact, Yes Orientated to Time, Yes Orientated to Place, Yes Orientated to Person - Impulse Control Impulse Control: Intact - but impaired as per staff report before IM Geodon - Insight and Judgement Insight and Judgement: Impaired - Medication Management Medication Management Adherence: Yes Assessment - Assessment Inpatient DSM-V Dx: G30.9 Clinical Impression: 77 y.o. , white female of [place] national origin, with a history of major neurocognitive disorder, brought in by family due to concerns that they can no longer provide independent care for her in the home setting, showing improvement in her dysphoric mood and episodic agitation, likely secondary to the dementing process currently in process of medication uptitration. Plan - Plan Treatment Plan: Name: ANAI ALLEN Birthdate: 1940 [id number] Patient is showing improvement in her symptoms. Will continue with Sertraline 50mg daily. Depakote level was 35.0 on 04/14/18, which was sub therapeutic, will increase Depakote to 250 mg BID. She is also on quetiapine 50mg PO qhs and prn. Psychiatry will follow up for further improvement and adjustment needed with medications if patient stays on medical floor but can also follow up with outpatient Psychiatrist for medication management if discharged. Medications: Current Medications Acetaminophen (Tylenol Tab*) 650 mg PO Q4H PRN PRN Reason: FEVER/PAIN Albuterol (Ventolin 2.5 Mg/3 Ml Neb.Chelita*) 2.5 mg INH Q2H PRN PRN Reason: SOB/WHEEZING Aspirin (Aspirin Ec Tab*) 81 mg PO DAILY [facility] Last Admin: 04/15/18 10:47 Dose: 81 mg Atorvastatin Calcium (Lipitor*) 20 mg PO DAILY [facility] Last Admin: 04/15/18 10:47 Dose: 20 mg Divalproex Sodium (Depakote Dr Tab(*)) 250 mg PO BID [facility] Gabapentin (Neurontin Cap(*)) 300 mg PO BEDTIME [facility] Last Admin: 04/14/18 21:14 Dose: 300 mg Heparin Sodium (Porcine) (Heparin Vial(*)) 5,000 units SUBCUT Q8HR [facility] Last Admin: 04/15/18 15:39 Dose: Not Given Lisinopril (Prinivil Tab*) 20 mg PO DAILY [facility] Last Admin: 04/15/18 10:47 Dose: 20 mg Quetiapine Fumarate (Seroquel Tab*) 25 mg PO DAILY PRN PRN Reason: AGITATION Last Admin: 04/15/18 13:12 Dose: 25 mg Quetiapine Fumarate (Seroquel Tab*) 50 mg PO BEDTIME [facility] Last Admin: 04/14/18 21:14 Dose: 50 mg Sertraline HCl (Zoloft*) 50 mg PO DAILY [facility] Last Admin: 04/15/18 10:49 Dose: 50 mg
[2018-04-15] MEDS: QUEtiapine TAB* 25 MG PO SCH (21:30)
[2018-04-15] MEDS: Gabapentin CAP(*) 300 MG PO SCH (21:30)
[2018-04-15] MEDS: Divalproex DR TAB(*) 250 MG PO SCH (21:30)
[2018-04-16] MEDS: Heparin VIAL(*) 5000 UNITS/ML VIAL (FIVE THOUSAND) SUBCUT SCH (05:36)
[2018-04-16] MEDS: Sertraline* 50 MG TAB PO SCH (10:18)
[2018-04-16] MEDS: Divalproex DR TAB(*) 250 MG PO SCH (10:18)
[2018-04-16] MEDS: Aspirin EC TAB* 81 MG TAB.EC PO SCH (10:18)
[2018-04-16] MEDS: Lisinopril TAB* 10 MG PO SCH (10:18)
[2018-04-16] MEDS: Atorvastatin* 20 MG TAB PO SCH (10:18)
[2018-04-16 11:41] VITALS: BP 120/47
--- NOTE | 2018-04-16 12:26 | DS ---
CC: Dr. Shanti Davis* DATE OF ADMISSION: 04/10/2018. DATE OF DISCHARGE: 04/16/2018. MY ATTENDING PHYSICIAN FOR TODAY: Dr. Jerry Fleming* (dictated by Delvis Tirado NP). PRIMARY CARE PHYSICIAN: Dr. Shanti Davis. CHIEF COMPLAINT: Altered mental status with exacerbation of pre-existing dementia. HOSPITAL COURSE: This is a 77-year-old female patient who has a significant amount of underlying dementia who was living at home with her family in her usual state of health; however, the patient's family brought her to the emergency department because she became combative and they were having difficulty managing her at home. They brought her to the emergency department in anticipation of receiving some medical management because the patient was acting out, very confused, combative, and aggressive while she was at home. She was hitting people with some assistive devices and again kind of lashing out with some violent behavior. The patient was admitted for half-way care for placement. During her stay, she was Neurology to rule out any organic brain causes and was also seen by Psychiatry to assist with medication management. She had several episodes of breakthrough aggression for which security and staff had to continue to redirect the patient for her safety. She kept trying to leave the unit. She is tearful and very emotionally labile. She was seen repeatedly by Psychiatry and medications have been titrated. The patient has been essentially calm since yesterday evening. After medications were increased, she did receive some prn's in the form of Haldol and Geodon; however, she has not needed any of that since yesterday. The patient was accepted at [facility] for the Memory Care Unit for additional care of this patient. ALLERGIES: The patient has no known drug allergies. REVIEW OF SYSTEMS: Unable to obtain. PHYSICAL EXAMINATION ON THE DAY OF DISCHARGE: Vital Signs: Blood pressure 147/ 45, heart rate 89, respiratory rate 18, O2 saturation 98 percent on room air with a temperature of 97.4. HEENT: The patient is atraumatic, normocephalic. PERRLA with nonicteric sclerae. Oral mucosa is moist. Neck: Supple, nontender. No JVD noted. No carotid bruit auscultated. Cardiovascular: S1, S2 present. No murmurs, gallops, or rubs noted. Lungs: Clear bilaterally to auscultation with no wheezing, rhonchi, or rales. Abdomen: Soft, nontender, nondistended. Positive bowel sounds all four quadrants. No organomegaly noted. : Deferred. Musculoskeletal: There is no clubbing, no cyanosis, no edema. She has +2 distal pulses palpable and intact. She has full range of motion with no restrictions and steady gait with minimal assistance. Neurologic : She is grossly confused, emotionally labile and tearful at times; however, she is able to be redirected and sometimes can have an appropriate conversation. LABORATORY DATA: WBC 5.2, RBC 3.14, hemoglobin 9.9, hematocrit 29, platelets 191; sodium 143, potassium 4.3, chloride 109, CO2 28, BUN 21, creatinine 1.20, GFR 43.3, glucose 114, calcium 9.0, bilirubin 0.40, AST 9, ALT 6, alk phos 86, total protein 6.5, albumin 3.6, globulin 2.9, lipase 28, TSH 0.41. DISCHARGE DIAGNOSES: 1. Dementia with intractable symptoms and acute exacerbation of chronic congestion. 2. History of hyperglycemia with no previous diagnosis of diabetes. 3. History of chronic kidney disease, currently stable. 4. GERD. 5. Hypertension, on Lisinopril and stable. 6. History of depression, on SSRI. 7. History of uterine cancer which is currently in remission. DISCHARGE MEDICATIONS: 1. Aspirin 81 mg daily. 2. Zoloft 50 mg daily. 3. Quetiapine 50 mg at bedtime and 25 mg daily as needed. 4. Pravachol 80 mg daily. 5. Lisinopril 20 mg daily. 6. Gabapentin 300 mg at bedtime. 7. Depakote 250 mg two times a day. DISPOSITION: The patient will be discharged to [facility]. Her family is aware of the plan of care and is in agreement as the patient does not have capacity to make this decision for herself. DIET: Heart-healthy, preferably low sodium because of her hypertension. ACTIVITY: As tolerated. Again, the patient was discharged in stable condition. All questions were answered. The family is in agreement with the plan of care for discharge. Will be transported today. Please see notes from case management and nursing regarding mode of transport. DELVIS TIRADO, TICKET SALES SUPERVISOR [id number]/[facility] #: [id number] [facility] CENTERReji
== END 2018-04-16 13:50 | DRG 57 ==
LOC: ED 11:57 → MEDTELE 15:58 → MED 04-13 13:19
PROVIDERS: ADMIT Internal Medicine; ATTEND Internal Medicine
DX: G30.9 Alzheimer's disease, unspecified (principal); F02.81 Dementia in other diseases classified elsewhere, unspecified severity, with behavioral disturbance; K21.9 Gastro-esophageal reflux disease without esophagitis; F32.9 Major depressive disorder, single episode, unspecified; E11.22 Type 2 diabetes mellitus with diabetic chronic kidney disease; I12.9 Hypertensive chronic kidney disease with stage 1 through stage 4 chronic kidney disease, or unspecified chronic kidney disease; N18.3 Chronic kidney disease, stage 3 (moderate); R00.1 Bradycardia, unspecified; I45.10 Unspecified right bundle-branch block; R10.30 Lower abdominal pain, unspecified; E78.00 Pure hypercholesterolemia, unspecified; F41.9 Anxiety disorder, unspecified; K58.9 Irritable bowel syndrome, unspecified; D63.1 Anemia in chronic kidney disease; F17.210 Nicotine dependence, cigarettes, uncomplicated; F39 Unspecified mood [affective] disorder; F43.10 Post-traumatic stress disorder, unspecified; F43.24 Adjustment disorder with disturbance of conduct; Z85.42 Personal history of malignant neoplasm of other parts of uterus; Z79.82 Long term (current) use of aspirin; Z90.710 Acquired absence of both cervix and uterus; Z91.83 Wandering in diseases classified elsewhere
CPT/HCPCS: 36415; 70450; 80048; 80053; 80164; 80320; 80329; 81003; 81015; 82140; 83036; 83605; 83690; 83735; 83880; 84443; 84484; 85025; 85610; 85730; 86140; 87086; 93005; 99284; A9270-GY; G0480; J1630; J1644; J3486

== ENCOUNTER 2018-04-21 11:00 | Emergency (ER) | payer MEDICARE, OTHER ==
[2018-04-21 12:00] VITALS: BP 120/55
--- NOTE | 2018-04-21 12:37 | UC ---
Knee Pain HPI - HPI Summary HPI Summary: Pt is accompanied by two daughters. Pt has history of dementia and resides in assisted living facility. Daughters report that pt fell unwitnessed at living facility onto bialteral knees. Pt was taken to [facility] Emergency room. Pt is unsure of what tests or imaging she had due to dementia. Pt's daughters do not have reports from that visit. Pt denies, [place], change in mentation or LOC. Pt continues to c/o bilateral knee pain that has not improved since onset. - History of Current Complaint Chief Complaint: UCLowerExtremity Stated Complaint: KNEE INJ Time Seen by Provider: 04/21/18 11:51 Hx Obtained From: Family/Social Media Director Hx From Patient Unobtainable Due To: Dementia Hx Last Menstrual Period: Many years ago. ?: No Onset/Duration: Sudden Onset, Lasting Days, Still Present Severity Initially: Moderate Severity Currently: Moderate Pain Intensity: 8 Character: Dull Aggravating Factor(s): Weight Bearing, Prolonged Standing Alleviating Factor(s): Rest, Position Able to Bear Weight: Yes - minimal - Risk Factors Septic Arthritis Risk Factor: Extremes of Age Gout Risk Factor: Age ^ 40, HTN - Allergies/Home Medications Allergies/Adverse Reactions: Allergies Allergy/AdvReac Type Severity Reaction Status Date / Time No Known Allergies Allergy Verified 04/21/18 11:34 Home Medications: Home Medications QUEtiapine TAB* [Seroquel 25 MG TAB*] 75 mg PO BEDTIME 04/21/18 [History Confirmed 04/21/18] Sertraline* [Zoloft*] 150 mg PO DAILY 04/21/18 [History Confirmed 04/21/18] PMH/Surg Hx/FS Hx/Imm Hx Previously Healthy: Yes Endocrine History: Dyslipidemia Cardiovascular History: Cardiac Disease Neurological History: Dementia Other History Of: Anticoagulant Therapy - Aspirin. Negative For: HIV, Hepatitis B, Hepatitis C - Surgical History Surgical History: Yes Surgery Procedure, Year, and Place: HYSTERECTOMY. NECK - Family History Known Family History: Positive: None Negative: Cardiac Disease, Hypertension, Diabetes Family History: No FHx of CVA - Social History Occupation: Retired Lives: With Family Alcohol Use: Rare Substance Use Type: None Smoking Status (MU): Former Smoker Type: Cigarettes Amount Used/How Often: 1 pack per week Have You Smoked in the Last Year: No When Did the Patient Quit Smoking/Using Tobacco: 30 years ago Household Exposure Type: Cigarettes - Immunization History Most Recent Influenza Vaccination: unsure if she got it this year Most Recent Tetanus Shot: unsure Most Recent Pneumonia Vaccination: unk Review of Systems Constitutional: Negative Skin: Other - superficial abrasions to bilateral knees. Healing and no s/sx of infection Eyes: Negative ENT: Negative Respiratory: Negative Cardiovascular: Negative Gastrointestinal: Negative Genitourinary: Negative Motor: Decreased ROM - generalized, c/o bilateral knee pain, Weakness - generalized Neurovascular: Negative Musculoskeletal: Arthralgia, Decreased ROM, Myalgia Neurological: Negative Psychological: Negative Is Patient Immunocompromised?: No All Other Systems Reviewed And Are Negative: Yes Physical Exam Triage Information Reviewed: Yes Completion Of Physical Exam Limited Due To: Dementia Appearance: Well-Appearing Vital Signs: Initial Vital Signs Temp 99.5 F 04/21/18 11:37 Pulse 72 04/21/18 11:37 Resp 20 04/21/18 11:37 BP 120/55 04/21/18 11:37 Pulse Ox 97 04/21/18 11:37 Vital Signs Reviewed: Yes Eye Exam: Normal ENT Exam: Normal Dental Exam: Normal Neck exam: Normal Neck: Positive: Supple Respiratory: Positive: Normal breath sounds Cardiovascular: Positive: Other: - Irregularly regular, had echo last week per daughters. Musculoskeletal Exam: Other Musculoskeletal: Positive: Strength Limited @ - generalized, ROM Limited @ - left knee secondary to pain Neurological Exam: Normal Neurological: Positive: Alert Psychological Exam: Normal Skin Exam: Other - bialteral abrasions, anterior knees, each ~ 1 cm indiameter, healing, no erythema, no discharge, dried scabs on both Diagnostics - Radiology No standard instances Radiology Interpretation Completed By: Radiologist - IMPRESSION: NO ACUTE BONY FINDINGS. MINOR OSTEOARTHRITIC CHANGES Knee Pain Course/Dx - Differential Dx/Diagnosis Differential Diagnosis/HQI/PQRI: Contusion Provider Diagnoses: bilateral knee contusion Discharge - Sign-Out/Discharge Documenting (check all that apply): Patient Departure - Discharge Plan Condition: Stable Disposition: HOME Patient Education Materials: Contusion in Adults (ED), Knee Pain (ED), R.I.C.E. Treatment (ED) Referrals: Rosemary Jaiml MD [Primary Care Provider] - If Needed - Billing Disposition and Condition Condition: STABLE Disposition: Home
--- NOTE | 2018-04-21 13:12 | RAD ---
INDICATION: Bilateral knee pain COMPARISON: None TECHNIQUE: AP, lateral, and oblique views of each knee were obtained. FINDINGS: There are no acute bony findings. There is minor, bilateral, patellofemoral osteoarthritis and there is minor, bilateral, medial joint space narrowing. The findings are not unusual for a patient this age. 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 There are vascular calcifications. IMPRESSION: NO ACUTE BONY FINDINGS. MINOR OSTEOARTHRITIC CHANGES
== END 2018-04-21 13:37 | disposition home or self-care (01) ==
LOC: UCCORT 11:00
DX: S80.02XA Contusion of left knee, initial encounter (principal); S80.01XA Contusion of right knee, initial encounter; Z87.891 Personal history of nicotine dependence; F03.90 Unspecified dementia, unspecified severity, without behavioral disturbance, psychotic disturbance, mood disturbance, and anxiety; W19.XXXA Unspecified fall, initial encounter; Y92.89 Other specified places as the place of occurrence of the external cause; I10 Essential (primary) hypertension
CPT/HCPCS: 99212; G0463